=== PATIENT | female | born 1935 | race Caucasian/White ===

== ENCOUNTER 2016-11-17 08:01 | Inpatient (IN) | payer MEDICARE, MEDICAID ==
[2016-11-17] VITALS (7 sets, daily range): BP systolic 98–144; BP diastolic 54–88
[~2016-11-17] VITALS: Ht 163.8 cm; Wt 88.0 kg
[~2016-11-17 08:01] MED LIST: ASP81CT PO; ASPI325T4 PO; CALC-140 PO; DGX.125T PO; DOCU-243 PO; EXEN5PEN2 SQ; FERR325T36 PO; FURO40TA4 PO; HYDR-33 PO; HYDR-3702 PO; HYDR-3811 PO; INSU100C7 SQ; INSU100I23 SQ; INSU100V2 SC; INSU100V8 SC; LISI30TA5 PO; LOVA40TA2 PO; LSNP10T PO; LSNP20T PO; MELA10TA PO; MTL2.5T PO; MTP50T PO; OMEP20CA6 PO; ONDAN4ODT PO; ONDN4T PO; SITA100T PO; TEMA7.5C PO; WARF3TAB6 PO
[2016-11-17] MEDS ORDERED: SERT50TA9 PO (08:19)
[2016-11-17] MEDS ORDERED: AC325T PO (08:19)
[2016-11-17] MEDS ORDERED: INSU100V32 SC (08:19)
--- NOTE | 2016-11-17 08:20 | NUR ---
This nurse noted "full code" status in facility paperwork. Also in facility paperwork is a DNR not signed by from February 2016 Addendum: 11/17/16 at 0822 by [id number] PT states she is a "full code"
[2016-11-17 08:41] LABS: BASOPHILS % (AUTO) 0 % (0-2); EOSINOPHILS # (AUTO) 0.1 10^3uL; EOSINOPHILS % (AUTO) 1 % (0-4); LYMPHOCYTES # (AUTO) 1.5 X10^3; MEAN CORPUSCULAR HEMOGLOBIN 27.8 PG (26.0-34.0); MEAN CORPUSCULAR VOLUME 87 FL (80-100); MEAN PLATELET VOLUME 10.5 FL (6.0-9.5); MONOCYTES # (AUTO) 1.2 X10^3; MONOCYTES % (AUTO) 7 % (3-11); NEUTROPHILS # (AUTO) 13.3 X10^3; NEUTROPHILS % (AUTO) 82 % (51-67); PLATELET COUNT 277 10^3uL (150-450); WHITE BLOOD COUNT 16.27 10^3uL (4.0-11.0)
[2016-11-17 08:52] LABS: ALBUMIN 3.5 g/dL (3.4-5.0); ANION GAP 15.9 MEQ/L (3-15); CALCULATED IONIZED CALCIUM 4.2 mg/dL (3.8-4.6); TOTAL PROTEIN 6.1 g/dL (6.4-8.5)
--- NOTE | 2016-11-17 09:45 | NUR ---
Nurse at [facility] called to notify of pt admission
--- NOTE | 2016-11-17 10:00 | NUR ---
Received report from Trupti Zepeda RN in ED.
--- NOTE | 2016-11-17 10:11 | NUR ---
Patient admitted to room 310 via cart from ED. See admission database for further assessment.
[2016-11-17] MEDS ORDERED: HYDROcodone/APAP 5 MG/325 MG (NORCO) TAB PO PRN (10:40)
[2016-11-17] MEDS ORDERED: ONDANSETRON 2 MG/ML (Z0FRAN) 2 ML VIAL IV PRN (10:40)
[2016-11-17] MEDS ORDERED: ACETAMINOPHEN 325 MG TAB (TYLENOL) PO PRN (10:40)
--- NOTE | 2016-11-17 10:48 | History and Physical (E) ---
History & Physical PCP: CC Blood in stools HPI Ms. Powell is an 81 year old female who presents to the ED for blood per rectum. She states she woke up around 3am and felt like there was something in the back of her throat. She coughed it up, she reports it was brown. She then started having diarrhea. She states she had 3 hours of diarrhea which was bloody. She called for help. She saw Dr. Bess about a month ago. She does not remember when her last INR was checked. She was brought to the ED and found to have blood in her stools. Denies any abdominal pain, denies any other episodes of this. She does endorse some hot and cold episodes. She uses tylenol for pain, but denies any ibuprofen or NSAIDs. She denies any steroid use. Patient states her last colonoscopy was at age 51 or 52. Upon arrival to floor, the patient is in stable condition. PMH Atrial fibrillation (warfarin and digoxin) HTN (lisinopril and metoprolol) Diabetes Mellitus (lantus 18 units, 10 units of humalog with meals) HLD (lovastatin) Chronic pain (acetaminophen and prn hydrocodone/acetaminophen) Breast cancer Skin cancer CAD (ASA, metoprolol)--sees Dr. García Depression (sertraline) IBS Constipation (prn colace) OA (calcium supplementation Rotator cuff injury PSH Left mastectomy Total hysterectomy Bilateral cataract surgery Right total knee replacement Cholecystectomy Back surgery Carpal tunnel surgery ALLERGIES: PCN Sulfa Gabapentin Morphine Silver sulfadiazine Please see list at end of report. HOME MEDICATIONS: Acetaminophen 325 MG PO BID Aspirin 81 MG PO DAILY Calcium Carbonate/Vitamin D3 2 EACH PO DAILY Digoxin 0.125 MG PO DAILY Furosemide 40 MG PO BID@0900,1200 Insulin Glargine 18 UNIT SC once evening Insulin Lispro 10 UNIT SC BID@08,17 Lisinopril 5 MG PO DAILY Lovastatin 40 MG PO DAILY Metoprolol Tartrate 25 MG PO BID Sertraline 50 MG PO DAILY Warfarin 3 MG PO DAILY@1700 Docusate 100 MG PO BID PRN PRN CONSTIPATION Hydrocodone/Acetaminophen 5/325mg #6 1-2 TAB PO Q6H PRN PRN PAIN Ondansetron 4 MG PO Q8H PRN PRN NAUSEA/VOMITING Please see list at end of report. FH Parents--Mom of heart failure. Father had emphysema. Siblings--Brother of brain stem stroke. Children--Daughter had breast cancer. SH Lives in [place] in an apartment at [address]. . Daughter lives in [place]. 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 Denies smoking, alcohol, or drug use. CODE STATUS DNR ROS CONSTITUTION: Denies weight loss or gain. Endorses chills. HEENT: No change in vision or hearing. No sores in mouth, sore throat. CV: No chest pain, palpitations. PULM: No new cough, shortness of breath, difficulty breathing. GI: No upset stomach, nausea, vomiting, constipation, or diarrhea. No blood in stool. : No dysuria. No blood in urine. MS: No new muscle or joint aches and pains. NEURO: No numbness or tingling. No weakness. INTEG: No rashes. Sore to right shoulder. ENDO: No heat or cold intolerance. HEME/LYMPH: Endorse easy bruising with coumadin. No swollen glands. PSYCH: No change in mood or behavior. OBJECTIVE Vital Signs Date Time Temp Pulse Resp B/P Pulse Ox O2 Delivery O2 Flow Rate FiO2 11/17/16 10:24 96.6 88 20 99 Room air 11/17/16 07:58 127/45 GEN: Awake and alert. No distress. HEENT: Normocephalic. Atraumatic, moist oral mucosa. CV: Irregular rhythm. Normal rate. S1 S2 normal with no murmur LUNGS: CTA B. NLR's ABD: Normal bowel sounds. S/ND/NTTP. EXTR: No C/C/E. Normal peripheral pulses. INTEG: No rash. NEURO: No focal motor neuro deficit. LABS CBC BMP Last 24 Hrs 11/17/16 08:33 Laboratory Results Past 24 Hrs 11/17/16 08:33: Alanine Aminotransferase (ALT/SGPT) 23, Albumin 3.5, Albumin/Globulin Ratio 1.346, Alkaline Phosphatase 72, Anion Gap 15.9, Aspartate Amino Transf (AST/SGOT ) 17, BUN/Creatinine Ratio 46, Basophils # (Auto) 0.0, Basophils (%) (Auto) 0, Blood Urea Nitrogen 49, Calcium Level 8.8, Calcium/Ionized Calcium Ratio 4.2, Calculated Osmolality 285, Carbon Dioxide Level 24, Chloride Level 102, Creatinine 1.07, Digoxin Level 0.50, Eosinophils # (Auto) 0.1, Eosinophils (%) ( Auto) 1, Estimat Glomerular Filtration Rate 59.6, Estimated GFR (Non- 49.2, Glucose Level 212, Hematocrit 33.70, Hemoglobin 10.8, Lymphocytes # (Auto) 1.5, Lymphocytes (%) (Auto) 9, Mean Corpuscular Hemoglobin 27.8, Mean Corpuscular Hemoglobin Concent 32.0, Mean Corpuscular Volume 87, Mean Platelet Volume 10.5, Monocytes # (Auto) 1.2, Monocytes (%) (Auto) 7, Neutrophils # (Auto) 13.3, Neutrophils (%) (Auto) 82, Platelet Count 277, Potassium Level 4.7, Prothromb Time International Ratio 3.4, Prothrombin Time 37.1, Red Blood Count 3.89, Red Cell Distribution Width 15.0, Sodium Level 138, Total Bilirubin 0.6, Total Protein 6.1, White Blood Count 16.27 IMAGING None ASSESSMENT/PLAN GI bleed Currently not bleeding. Hgb stable. Monitor closely. Will transfuse less than 8. Supra-therapeutic INR. 3.4 with reported bleeding. Will hold coumadin today and monitor INR's. Atrial fibrillation On warfarin and digoxin at home, holding warfarin today, recheck INR tomorrow. Dig level normal, will continue this. HTN On lisinopril and metoprolol at home, will continue here. Diabetes Mellitus Home regimen of lantus 18 units and 10 units of humalog with meals. Monitor accu cheks, provide SSI. HLD Lovastatin per home dose, will continue here. Chronic pain Continue home acetaminophen and prn hydrocodone/acetaminophen CAD/[place] Continue home metoprolol, holding ASA. Depression Continue home sertraline. Constipation On prn colace at home, will continue to provide. OA On calcium supplementation at home, will continue DVT proph SCD's for now. Code status DNR confirmed with patient. FEN CLD for now, advance when stools and bleeding has improved. Electrolytes normal. IVF's, one liter provided in ED. Dispo Observation for now. Allergies/Home Medications Allergies: Coded Allergies: Penicillins (Verified Allergy, Unknown, 11/17/16) Sulfa (Sulfonamide Antibiotics) (Verified Allergy, Unknown, 11/17/16) gabapentin (Verified Allergy, Unknown, 11/17/16) silver sulfadiazine (Verified Allergy, Unknown, 11/17/16) morphine (Unverified Adverse Reaction, Unknown, 11/17/16) "Makes me crazy." States pain pill make her crazy also. Reported Home Medications Scheduled Acetaminophen (Acetaminophen) 325 MG PO BID (Reported) Aspirin (Baby Aspirin) 81 MG PO DAILY (Reported) Calcium Carbonate/Vitamin D3 (Calcium + Vitamin D Tablet) 1 EACH PO DAILY ( Reported) Diclofenac Sodium (Voltaren 1% Gel) 4 GM TOP BID (Reported) Digoxin (Digoxin) 125 MCG PO Q48H (Reported) Docusate Sodium (Docusate Sodium) 200 MG PO DAILY (Reported) Furosemide (Furosemide) 40 MG PO DAILY (Reported) Hydrocodone Bit/Acetaminophen ([place] 10mg/325mg) 2 TAB PO BID (Reported) Insulin Glargine,Hum.rec.anlog (Lantus) 18 UNIT SC once evening (Reported) Insulin Lispro (Humalog) 10 UNIT SC BID@08,17 Lidocaine HCl (Lidoderm 5% Patch) 1 EA TOP DAILY (Reported) Lisinopril (Lisinopril) 5 MG PO DAILY (Reported) Lovastatin (Lovastatin) 40 MG PO DAILY (Reported) Metoprolol Tartrate (Metoprolol Tartrate) 25 MG PO BID (Reported) Omeprazole Magnesium (Prilosec OTC) 20 MG PO DAILY (Reported) Sertraline HCl (Sertraline HCl) 50 MG PO DAILY (Reported) Warfarin Sodium (Warfarin Sodium) 3 MG PO DAILY@1700 (Reported) Scheduled PRN Furosemide (Furosemide) 40 MG PO HS PRN PRN EDEMA/WEIGHT GAIN (Reported) Hydrocodone Bit/Acetaminophen ([place] 10mg/325mg) 1 TAB PO Q4H PRN PRN PAIN ( Reported) Ondansetron HCl (Zofran) 4 MG PO Q8H PRN PRN NAUSEA/VOMITING (Reported) Promethazine/Codeine (Phenergan w/Codeine 6.25mg-10mg/5ml) 5 ML PO Q6H PRN PRN COUGH (Reported) Discontinued Medications Digoxin (Lanoxin) 0.125 MG PO DAILY Discontinued Reason: Dose changed Docusate Sodium (Colace) 100 MG PO BID PRN PRN CONSTIPATION Discontinued Reason: Update list Hydrocodone/Acetaminophen (ED- [place] 5/325mg #6) 1-2 TAB PO Q6H PRN PRN PAIN ( Reported) Discontinued Reason: Update list Temazepam (Temazepam) 7.5 MG PO HS PRN PRN INSOMNIA (Reported) Discontinued Reason: Course completed Copies to: End of Report . SANTIAGO MITCHELL MD Nov 17, 2016 10:48
[2016-11-17] MEDS ORDERED: PANTOPRAZOLE IV 80 MG in SODIUM CHLORIDE FLUSH 20 ML IV ONE (11:12)
[2016-11-17] MEDS: PANTOPRAZOLE IV 40 MG in SODIUM CHLORIDE 100 ML IV SCH ×3 (11:22→21:37)
[2016-11-17] MEDS ORDERED: DOCU100C8 PO (11:25)
[2016-11-17] MEDS ORDERED: DIGO125T PO (11:26)
[2016-11-17] MEDS ORDERED: FURO40TA4 PO (11:29)
[2016-11-17] MEDS ORDERED: ACHYD1T PO ×2 (11:32→11:33)
[2016-11-17] MEDS ORDERED: PRCD5U PO (11:37)
[2016-11-17] MEDS ORDERED: DICL100G13 TOP (11:37)
[2016-11-17] MEDS ORDERED: LD5PT TOP (11:37)
[2016-11-17] MEDS ORDERED: OMEP20TA33 PO (11:37)
--- NOTE | 2016-11-17 11:38 | NUR ---
Medication reconciliation completed using MAR from [facility] facility.
[2016-11-17] MEDS ORDERED: SODIUM CHLORIDE FLUSH 10 ML SYR IV SCH (11:45)
[2016-11-17] MEDS ORDERED: SODIUM CHLORIDE FLUSH 3 ML SYR IV PRN (11:45)
--- NOTE | 2016-11-17 14:25 | NUR ---
Dr. Quitnero at bedside- family at bedside. Pt has not had any stools since admission or in ED. Pt states last BM was this AM around 3am. 1400 Hgb was 9.3- Dr. Quintero and patient aware- Dr. Quintero explains to patient that we will cont to monitor Hgb and transfuse blood if Hgb drops under 8.0. Pt verbalizes understanding.
[2016-11-17] MEDS: INSULIN LISPRO 1 UNIT/0.01 ML (HUMALOG) DOSE SC SCH (17:47)
[2016-11-17] MEDS: SIMvastatin 20 MG (ZOCOR) TAB PO SCH (21:29)
[2016-11-17] MEDS: ACETAMINOPHEN 325 MG TAB (TYLENOL) PO SCH (21:29)
[2016-11-17] MEDS: INSULIN GLARGINE 1 UNIT/0.01ML (LANTUS) DOSE SC SCH (21:30)
--- NOTE | 2016-11-17 23:50 | NUR ---
BGM 79, insulin gtt stopped. Grape juice provided per pt preference. Pt awake, alert and watching television. Will continue to monitor. Addendum: 11/17/16 at 2359 by Abril Magaña RN Wrong entry - incorrect chart.
[2016-11-18] VITALS (9 sets, daily range): BP systolic 101–151; BP diastolic 46–68
[2016-11-18] MEDS: PANTOPRAZOLE IV 40 MG in SODIUM CHLORIDE 100 ML IV SCH ×5 (02:40→23:38)
[2016-11-18 03:23] LABS: BILIRUBIN,URINE Negative (Negative); CLARITY,URINE Clear; COLOR,URINE Yellow; GLUCOSE, URINE (UA) Negative (Negative); LEUKOCYTE ESTERASE ,URINE Negative (Negative); PH,URINE 6.5 (5.0 - 8.0); UROBILINOGEN,URINE 0.2 mg/dL (0.2-1.0)
[2016-11-18 03:40] LABS: URINE CENTRIFUGED VOLUME 12 mL
--- NOTE | 2016-11-18 06:49 | NUR ---
Patient rests in bed throughout night without needs. Up to commode frequently. Has one bloody stool. Patient without needs at this time.
[2016-11-18 06:54] LABS: BASOPHILS % (AUTO) 0 % (0-2); EOSINOPHILS # (AUTO) 0.1 10^3uL; EOSINOPHILS % (AUTO) 1 % (0-4); LYMPHOCYTES # (AUTO) 2.2 X10^3; MEAN CORPUSCULAR HEMOGLOBIN 27.5 PG (26.0-34.0); MEAN CORPUSCULAR HGB CONC 32.4 g/dL (31.0-37.0); MEAN CORPUSCULAR VOLUME 85 FL (80-100); MEAN PLATELET VOLUME 10.7 FL (6.0-9.5); MONOCYTES # (AUTO) 1.1 X10^3; MONOCYTES % (AUTO) 8 % (3-11); NEUTROPHILS # (AUTO) 9.4 X10^3; NEUTROPHILS % (AUTO) 73 % (51-67); PLATELET COUNT 247 10^3uL (150-450); WHITE BLOOD COUNT 12.87 10^3uL (4.0-11.0)
[2016-11-18 07:08] LABS: ALBUMIN 3.2 g/dL (3.4-5.0); ANION GAP 12.2 MEQ/L (3-15); CALCULATED IONIZED CALCIUM 4.4 mg/dL (3.8-4.6); TOTAL PROTEIN 5.7 g/dL (6.4-8.5)
[2016-11-18] MEDS: INSULIN LISPRO 1 UNIT/0.01 ML (HUMALOG) DOSE SC SCH ×2 (08:30→17:00)
--- NOTE | 2016-11-18 08:48 | Progress Note-A/P (E) ---
Progress Note Subjective: Patient is resting in bed. Daughters are at bedside with many questions and concerns. Patient reports a small dark stool this morning. Discussed current findings and care plan with the patient and her family. Questions answered. Objective: Current Medications Acetaminophen 650 mg Q6H PRN PO Ondansetron 4 mg Q6H PRN IV Pantoprazole IV Acetaminophen 325 mg BID PO Digoxin 0.125 mg Q48H PO Docusate 100 mg BID PRN PO Acetaminophen/ Hydrocodone 5 Mg/325 Mg 1-2 tabs Q6H PRN PO Insulin Glargine 18 unit HS SC Insulin Human Lispro 10 unit BID@ SC Lisinopril 5 mg DAILY PO Sertraline 50 mg DAILY PO Calcium/Vitamin D 2 each DAILY PO Simvastatin 20 mg HS PO Vital Signs Date Time Temp Pulse Resp B/P Pulse Ox O2 Delivery O2 Flow Rate FiO2 11/18/16 08:25 98.4 89 18 151/63 99 Room air I & O Past 24 hrs 11/18/16 07:00 Intake Total 1379 ml Output Total 2250 ml Balance -871 ml Intake Oral 1162 ml IV Total 217 ml Output Urine Total 2250 ml Physical Exam General--Awake and alert. No distress. HEENT--Normocephalic. MMM in oral cavity. Lungs--Clear to auscultation bilaterally. Nonlabored respirations. Heart--Irregular rhythm. Regular rate. Abdomen--Normal bowel sounds. Soft. Nondistended. Nontender. Extremities--Mild lower extremity edema noted. Past 24 hour Lab Results 11/17/16 13:57 11/17/16 22:04 11/18/16 06:10 Laboratory Results Past 24 Hrs 11/17/16 13:57: Hematocrit 29.10, Hemoglobin 9.3 11/17/16 22:04: Hemoglobin 9.0 11/18/16 02:50: Urine Bacteria Rare, Urine Bilirubin Negative, Urine Clarity Clear, Urine Collection Type Clean catch, Urine Color Yellow, Urine Glucose (UA) Negative, Urine Ketones Negative, Urine Leukocyte Esterase Negative, Urine Nitrite Negative, Urine Protein Negative, Urine RBC 10-20, Urine RBC (Auto) 3+, Urine Specific [place] 1.010, Urine Squamous Epithelial Cells 10-20, Urine Urobilinogen 0.2, Urine WBC 0-2, Urine pH 6.5, Volume Urine Centrifuged 12 ml 11/18/16 06:10: Hematocrit 27.20, Hemoglobin 8.8, Alanine Aminotransferase (ALT/SGPT) 28, Albumin 3.2, Albumin/Globulin Ratio 1.280, Alkaline Phosphatase 67, Anion Gap 12.2, Aspartate Amino Transf (AST/SGOT) 16, BUN/Creatinine Ratio 31, Basophils # (Auto) 0.0, Basophils (%) (Auto) 0, Blood Urea Nitrogen 29, Calcium Level 8.8 , Calcium/Ionized Calcium Ratio 4.4, Calculated Osmolality 275, Carbon Dioxide Level 23, Chloride Level 107, Creatinine 0.94, Eosinophils # (Auto) 0.1, Eosinophils (%) (Auto) 1, Estimat Glomerular Filtration Rate 69.2, Estimated GFR (Non- 57.2, Glucose Level 131, Lymphocytes # (Auto) 2.2, Lymphocytes (%) (Auto) 17, Mean Corpuscular Hemoglobin 27.5, Mean Corpuscular Hemoglobin Concent 32.4, Mean Corpuscular Volume 85, Mean Platelet Volume 10.7, Monocytes # (Auto) 1.1, Monocytes (%) (Auto) 8, Neutrophils # (Auto) 9.4, Neutrophils (%) (Auto) 73, Platelet Count 247, Potassium Level 4.4, Prothromb Time International Ratio 2.6, Prothrombin Time 29.2, Red Blood Count 3.20, Red Cell Distribution Width 15.4, Smear Scan , Sodium Level 138, Total Bilirubin 0.7 , Total Protein 5.7, White Blood Count 12.87 Imaging Results None Assessment/Plan GI bleed Currently not bleeding. Hgb has dropped from 10.5 on admission to 8.8 this morning. On recheck hgb is 8.5, seems to have stabilized. Monitor closely. Will transfuse if hgb drops less than 8. Supra-therapeutic INR. 3.4 with reported bleeding. Held coumadin yesterday, INR is down to 2.6, hold again today, look to restart tomorrow. Atrial fibrillation On warfarin and digoxin at home. Dig level normal, will continue this. HTN On lisinopril and metoprolol at home, will continue lisinopril here, hold BB until bleed passes. Diabetes Mellitus Home regimen of lantus 18 units and 10 units of humalog with meals. Monitor accu cheks ([phone]), provide SSI. HLD Lovastatin per home dose, will continue here. Chronic pain Continue home acetaminophen and prn hydrocodone/acetaminophen CAD/[place] Continue home metoprolol, holding ASA due to bleed. Depression Continue home sertraline. Constipation On prn colace at home, will continue to provide. OA On calcium supplementation at home, will continue DVT proph SCD's for now. Code status DNR confirmed with patient. FEN CLD initially, will advance to soft diet. Electrolytes normal. IVF's, one liter provided in ED. Dispo Patient is meeting inpatient criteria, will change status. Holding coumadin again today, look to restart on Saturday. Advancing diet. Monitor hgb and INR closely SANTIAGO MITCHELL MD Nov 18, 2016 08:48 SANTIAGO MITCHELL MD Nov 18, 2016 08:48
[2016-11-18] MEDS ORDERED: DIGOXIN 0.125 MG (LANOXIN) TAB PO SCH (08:50)
[2016-11-18] MEDS ORDERED: HYDROcodone/APAP 10 MG/325 MG (NORCO) TAB PO PRN (08:50)
[2016-11-18] MEDS: DIGOXIN 0.125 MG (LANOXIN) TAB PO SCH (10:35)
[2016-11-18] MEDS: FUROSEMIDE 40 MG (LASIX) TAB PO SCH (10:36)
[2016-11-18] MEDS: HYDROcodone/APAP 10 MG/325 MG (NORCO) TAB PO SCH ×2 (10:36→20:40)
[2016-11-18] MEDS: lisINopril 10 MG (PRINIVIL) TABLET PO SCH (10:36)
[2016-11-18] MEDS: CALCIUM CARBONATE 500 MG + VITAMIN D 200 IU TABLET PO SCH (10:36)
[2016-11-18] MEDS: ACETAMINOPHEN 325 MG TAB (TYLENOL) PO SCH ×2 (10:36→20:40)
[2016-11-18] MEDS: SERTRALINE 50 MG (ZOLOFT) TABLET PO SCH (10:36)
[2016-11-18] MEDS: LIDOCAINE (LIDODERM) 5% PATCH TOP SCH (10:37)
--- NOTE | 2016-11-18 18:00 | NUR ---
Hemoglobin remained stable this afternoon. Several clots noted but no large amount of blood was expelled. Able to take clear liquids without difficulty. Plan is to advance diet to soft in the morning.
--- NOTE | 2016-11-18 19:15 | NUR ---
Report received, care assumed. Pt resting in bed now after being up to BSC. No needs now.
[2016-11-18] MEDS: SIMvastatin 20 MG (ZOCOR) TAB PO SCH (20:41)
[2016-11-18] MEDS: INSULIN GLARGINE 1 UNIT/0.01ML (LANTUS) DOSE SC SCH (20:44)
--- NOTE | 2016-11-18 22:00 | NUR ---
Pt resting in bed at this time with eyes closed, no signs discomfort. Pt took evening medications without difficulty earlier. Reported mild discomfort in shoulder. No needs at this time. Call light in reach, side rails up times two, bed alarm on, H2O and personal items in reach. Fall precautions in place.
[2016-11-19] VITALS (12 sets, daily range): BP systolic 123–139; BP diastolic 34–98
[2016-11-19] MEDS: PANTOPRAZOLE IV 40 MG in SODIUM CHLORIDE 100 ML IV SCH (04:31)
--- NOTE | 2016-11-19 06:00 | NUR ---
Pt has slept well tonight. No reports discomfort. Has been up to BSC frequently, no large amounts blood in stool this shift. IV Protonix continues to infuse at 20ml/hr. Pt resting quietly with eyes closed now. No needs at this time. Call light in reach, side rails up times two, H2O and personal items in reach, bed alarm on.
[2016-11-19 06:30] LABS: BASOPHILS % (AUTO) 0 % (0-2); EOSINOPHILS # (AUTO) 0.2 10^3uL; EOSINOPHILS % (AUTO) 1 % (0-4); LYMPHOCYTES # (AUTO) 1.8 X10^3; MEAN CORPUSCULAR HEMOGLOBIN 27.2 PG (26.0-34.0); MEAN CORPUSCULAR VOLUME 86 FL (80-100); MEAN PLATELET VOLUME 10.7 FL (6.0-9.5); MONOCYTES % (AUTO) 9 % (3-11); NEUTROPHILS # (AUTO) 7.8 X10^3; NEUTROPHILS % (AUTO) 72 % (51-67); PLATELET COUNT 233 10^3uL (150-450)
[2016-11-19 06:51] LABS: ANION GAP 11.7 MEQ/L (3-15); CALCULATED IONIZED CALCIUM 4.6 mg/dL (3.8-4.6); TOTAL PROTEIN 5.3 g/dL (6.4-8.5)
[2016-11-19 07:26] LABS: MEAN CORPUSCULAR HGB CONC 31.7 g/dL (31.0-37.0)
[2016-11-19] MEDS: HYDROcodone/APAP 10 MG/325 MG (NORCO) TAB PO SCH ×2 (08:28→20:52)
[2016-11-19] MEDS: CALCIUM CARBONATE 500 MG + VITAMIN D 200 IU TABLET PO SCH (08:30)
[2016-11-19] MEDS: SERTRALINE 50 MG (ZOLOFT) TABLET PO SCH (08:32)
[2016-11-19] MEDS: LIDOCAINE (LIDODERM) 5% PATCH TOP SCH (08:34)
[2016-11-19] MEDS: ACETAMINOPHEN 325 MG TAB (TYLENOL) PO SCH (08:34)
[2016-11-19] MEDS: INSULIN LISPRO 1 UNIT/0.01 ML (HUMALOG) DOSE SC SCH ×5 (08:39→20:49)
[2016-11-19] MEDS: lisINopril 10 MG (PRINIVIL) TABLET PO SCH (09:00)
[2016-11-19] MEDS: FUROSEMIDE 40 MG (LASIX) TAB PO SCH (09:00)
--- NOTE | 2016-11-19 09:53 | NUR ---
NUTRITION ASSESSMENT Level 1 Patient: Renata Powell Age/Sex: 81/F Date Screened: 11-19-16 Weight: 196.6#/89.4 kg Height: 64.5 inches Primary Diagnosis: GI bleed Diet Order: surgical soft Relevant labs: Hgb 8.4, Hct 26.50, glucose 139 Food allergies: N Nutrition Assessment Criteria Age over 80: 4 points Body Mass Index (BMI) under 19: N Admission Screening Indicates Risk? 6 points Moderate/High Risk Diagnosis: 3 points TPN or PPN: N NPO or clear liquid diet: N Serum Glucose <70 or >180: N Hgb A1c >6.7: N/A Total: 13 points Risk Screen: __ Patient at low nutritional risk based on available data; reevaluate in 5-7 days __ Patient at moderate nutritional risk based on available data; reevaluate in 3-5 days _X_ Patient at high nutritional risk; complete Nutrition Assessment within 48 hours of admission.
[2016-11-19] MEDS ORDERED: DEXTROSE ORAL GEL (GLUTOSE 40%) 15 GM TUBE PO PRN (10:50)
[2016-11-19] MEDS ORDERED: MAG HYDROX/AL HYDROX/SIMETH 200-200-20/5 ML (MAG-AL PLUS) 30 ML UDC PO PRN (10:50)
[2016-11-19] MEDS ORDERED: MAGNESIUM HYDROXIDE 80MG/ML (MILK OF MAGNESIA) 30 ML UDC PO PRN (10:50)
[2016-11-19] MEDS ORDERED: GLUCAGON EMERGENCY 1 MG/KIT IM PRN (10:50)
[2016-11-19] MEDS ORDERED: POLYETHYLENE GLYCOL 17 GM (MIRALAX) PACKET PO PRN (10:50)
[2016-11-19] MEDS ORDERED: DOCUSATE SODIUM 100 MG (COLACE) CAP PO PRN (10:50)
[2016-11-19] MEDS ORDERED: DEXTROSE 50% 25 GM/50 ML SYRINGE IV PRN (10:50)
[2016-11-19] MEDS ORDERED: CALCIUM CARBONATE CHEWABLE 300 MG (TUMS) TABLET PO PRN (10:50)
--- NOTE | 2016-11-19 11:23 | Progress Note (E) ---
Progress Note SUBJECTIVE Overnight, no major issues reported. Afebrile. Has had tachycardia at times but well controlled for atrial fibrillation. Respirations remain normal and she remains on room air. This AM, having some abdominal pain that is RUQ and under rib. Daughters are present and are very worried this could be related to blood clot. Noted that RN just gave pain medication that hasn't had time to work yet. OBJECTIVE Vital Signs Date Time Temp Pulse Resp B/P Pulse Ox O2 Delivery O2 Flow Rate FiO2 11/19/16 09:17 115 132/44 11/19/16 09:15 97.0 18 96 Room air I & O 11/18/16 11/19/16 Cumulative From/Thru 19:00 07:00 11/17/16 07:58 - 11/19/16 06:15 Intake Total 2261 ml 1101 ml 4741 ml Output Total 1900 ml 2300 ml 6450 ml Balance 361 ml -1199 ml -1709 ml GEN: HEENT: CV: PULM: ABD: EXTR: INTEG: NEURO: Lab-Past 14 Days, 35 Results 11/17/16 08:33: Alanine Aminotransferase (ALT/SGPT) 23L, Albumin 3.5, Albumin/Globulin Ratio 1.346, Alkaline Phosphatase 72, Anion Gap 15.9H, Aspartate Amino Transf (AST/ SGOT) 17, BUN/Creatinine Ratio 46H, Basophils # (Auto) 0.0, Basophils (%) (Auto ) 0, Blood Urea Nitrogen 49#H, Calcium Level 8.8, Calcium/Ionized Calcium Ratio 4.2, Calculated Osmolality 285, Carbon Dioxide Level 24, Chloride Level 102, Creatinine 1.07, Digoxin Level 0.50L, Eosinophils # (Auto) 0.1, Eosinophils (%) (Auto) 1, Estimat Glomerular Filtration Rate 59.6, Estimated GFR (Non- 49.2, Glucose Level 212#H, Hematocrit 33.70L, Hemoglobin 10.8L, Lymphocytes # (Auto) 1.5, Lymphocytes (%) (Auto) 9L, Mean Corpuscular Hemoglobin 27.8, Mean Corpuscular Hemoglobin Concent 32.0, Mean Corpuscular Volume 87, Mean Platelet Volume 10.5H, Monocytes # (Auto) 1.2, Monocytes (%) ( Auto) 7, Neutrophils # (Auto) 13.3, Neutrophils (%) (Auto) 82H, Platelet Count 277, Potassium Level 4.7#, Prothromb Time International Ratio 3.4H, Prothrombin Time 37.1H, Red Blood Count 3.89L, Red Cell Distribution Width 15.0, Sodium Level 138, Total Bilirubin 0.6, Total Protein 6.1L, White Blood Count 16.27H 11/17/16 13:57: Hematocrit 29.10L, Hemoglobin 9.3L 11/17/16 22:04: Hemoglobin 9.0L 11/18/16 02:50: Urine Bacteria Rare, Urine Bilirubin Negative, Urine Clarity Clear, Urine Collection Type Clean catch, Urine Color Yellow, Urine Glucose (UA) Negative, Urine Ketones Negative, Urine Leukocyte Esterase Negative, Urine Nitrite Negative, Urine Protein Negative, Urine RBC 10-20H, Urine RBC (Auto) 3+H, Urine Specific [place] 1.010, Urine Squamous Epithelial Cells 10-20, Urine Urobilinogen 0.2, Urine WBC 0-2, Urine pH 6.5, Volume Urine Centrifuged 12 ml 11/18/16 06:10: Alanine Aminotransferase (ALT/SGPT) 28L, Albumin 3.2L, Albumin/Globulin Ratio 1.280, Alkaline Phosphatase 67, Anion Gap 12.2, Aspartate Amino Transf (AST/SGOT ) 16, BUN/Creatinine Ratio 31H, Basophils # (Auto) 0.0, Basophils (%) (Auto) 0, Blood Urea Nitrogen 29H, Calcium Level 8.8, Calcium/Ionized Calcium Ratio 4.4, Calculated Osmolality 275L, Carbon Dioxide Level 23, Chloride Level 107, Creatinine 0.94, Eosinophils # (Auto) 0.1, Eosinophils (%) (Auto) 1, Estimat Glomerular Filtration Rate 69.2, Estimated GFR (Non- 57.2, Glucose Level 131#H, Hematocrit 27.20L, Hemoglobin 8.8L, Lymphocytes # (Auto) 2.2, Lymphocytes (%) (Auto) 17L, Mean Corpuscular Hemoglobin 27.5, Mean Corpuscular Hemoglobin Concent 32.4, Mean Corpuscular Volume 85, Mean Platelet Volume 10.7H, Monocytes # (Auto) 1.1, Monocytes (%) (Auto) 8, Neutrophils # ( Auto) 9.4, Neutrophils (%) (Auto) 73H, Platelet Count 247, Potassium Level 4.4, Prothromb Time International Ratio 2.6H, Prothrombin Time 29.2H, Red Blood Count 3.20L, Red Cell Distribution Width 15.4, Smear Scan , Sodium Level 138, Total Bilirubin 0.7, Total Protein 5.7L, White Blood Count 12.87H 11/18/16 13:22: Hemoglobin 8.7L 11/19/16 05:26: Alanine Aminotransferase (ALT/SGPT) 21L, Albumin 3.0L, Albumin/Globulin Ratio 1.304, Alkaline Phosphatase 66, Anion Gap 11.7, Aspartate Amino Transf (AST/SGOT ) 18, BUN/Creatinine Ratio 21H, Basophils # (Auto) 0.0, Basophils (%) (Auto) 0, Blood Urea Nitrogen 24H, Calcium Level 8.9, Calcium/Ionized Calcium Ratio 4.6, Calculated Osmolality 273L, Carbon Dioxide Level 29, Chloride Level 102, Creatinine 1.14, Eosinophils # (Auto) 0.2, Eosinophils (%) (Auto) 1, Estimat Glomerular Filtration Rate 55.4, Estimated GFR (Non- 45.8, Glucose Level 139H, Hematocrit 26.50L, Hemoglobin 8.4L, Lymphocytes # (Auto) 1.8 , Lymphocytes (%) (Auto) 17L, Mean Corpuscular Hemoglobin 27.2, Mean Corpuscular Hemoglobin Concent 31.7, Mean Corpuscular Volume 86, Mean Platelet Volume 10.7H, Monocytes # (Auto) 1.0, Monocytes (%) (Auto) 9, Neutrophils # ( Auto) 7.8, Neutrophils (%) (Auto) 72H, Platelet Count 233, Potassium Level 4.6, Prothromb Time International Ratio 2.7H, Prothrombin Time 30.4H, Red Blood Count 3.09L, Red Cell Distribution Width 15.6, Smear Scan Yes, Sodium Level 138 , Total Bilirubin 0.6, Total Protein 5.3L, White Blood Count 10.90 TELE 11/19 Atrial fibrillation, rate controlled. IMAGING 11/19/16 ACUTE ABDOMINAL SERIES: PENDING ASSESSMENT Renata Powell is a 81 year old female admitted 11/17 with rectal bleeding that awoke her from sleep. She was mildly coagulopathic on admit with INR 3.4. She had some RUQ abdominal pain of uncertain significance. She has several chronic problems. PLAN * GI Bleed: Based on history, possibly upper, possibly lower. Upper more likely. Also considered diverticulosis vs. ischemic colitis vs. other. Mild coagulopathy due to warfarin contributed. Not reversed with vitamin K. Warfarin held. Pantoprazole drip stopped 11/19. Monitor and likely consult surgery for consideration of EGD. * Acute Blood Loss Anemia: Hgb norma 8.4 11/19. Transfuse for Hgb < 8 or precipitous drop. * Coagulopathy due to Warfarin: Did not receive vitamin K on admit. Warfarin on hold. Monitor INR trend. * Abdominal Pain: Etiology uncertain. Begin workup with acute abdominal series. [place] * F/E/N: Surgical soft. Peripheral IV. * Prophylaxis: SCDs, DAVID hose. * Code Status: DNR * Dispo: Inpatient. Expect 2-3 day additional stay. CHRONIC ISSUES * CAD: Not on aspirin. Check troponin trend. * Constipation: Bowel regimen * HLD: Simvastatin * HTN: Lisinopril * Atrial fibrillation: Warfarin on hold due to GI bleed. Digoxin. * Diabetes Mellitus Type II: * Depression: Sertraline * Edema? Furosemide * CKD Stage III: Cr within normal limits this admission. Observe. * Chronic Diastolic CHF, Severe MR: Stable. Review prior echo. From prior admission: Moderate to Severe MR on echo, had her follow-up with Dr. García. Review records. Furosemide. CRIS ALICIA MD Nov 19, 2016 11:03
--- NOTE | 2016-11-19 14:44 | Diagnostic Imaging Report ---
INDICATION: Abdominal pain. TECHNIQUE: Supine and upright views of the abdomen were obtained with a single view of the chest. FINDINGS: The lungs appear clear. There are surgical clips seen in the left axilla. There is anterior/inferior dislocation of the right humeral head. There is no evidence of free intraperitoneal gas or pneumatosis. The overall bowel gas pattern is unremarkable. There is diffuse spondylosis and degenerative change in the hips. IMPRESSION: No acute abdominal abnormality is identified. Note is made of inferior dislocation of the right shoulder. Dictated by: Dictated on workstation # [id number]
[2016-11-19] MEDS ORDERED: HYDROcodone/APAP 10 MG/325 MG (NORCO) TAB PO PRN (14:50)
[2016-11-19] MEDS: DOCUSATE SODIUM 100 MG (COLACE) CAP PO PRN (20:51)
[2016-11-19] MEDS: INSULIN GLARGINE 1 UNIT/0.01ML (LANTUS) DOSE SC SCH (20:51)
[2016-11-19] MEDS: SIMvastatin 20 MG (ZOCOR) TAB PO SCH (20:52)
[2016-11-20] VITALS (9 sets, daily range): BP systolic 96–133; BP diastolic 47–75
[2016-11-20] MEDS: DOCUSATE SODIUM 100 MG (COLACE) CAP PO PRN (05:52)
[2016-11-20 06:10] LABS: BASOPHILS % (AUTO) 0 % (0-2); EOSINOPHILS # (AUTO) 0.1 10^3uL; EOSINOPHILS % (AUTO) 1 % (0-4); LYMPHOCYTES # (AUTO) 1.8 X10^3; MEAN CORPUSCULAR HEMOGLOBIN 27.7 PG (26.0-34.0); MEAN CORPUSCULAR HGB CONC 32.7 g/dL (31.0-37.0); MEAN CORPUSCULAR VOLUME 85 FL (80-100); MEAN PLATELET VOLUME 10.6 FL (6.0-9.5); MONOCYTES # (AUTO) 1.1 X10^3; MONOCYTES % (AUTO) 9 % (3-11); NEUTROPHILS # (AUTO) 8.6 X10^3; NEUTROPHILS % (AUTO) 74 % (51-67); PLATELET COUNT 265 10^3uL (150-450); WHITE BLOOD COUNT 11.63 10^3uL (4.0-11.0)
--- NOTE | 2016-11-20 06:10 | NUR ---
Pt rests in short intervals throughout the night. Up frequently to urinate. C/o pain under her rib and shoulder pain rated at 4/10 this morning. PRN norco provided. PRN colace provided; but no results yet. Resp even and non labored on RA.
[2016-11-20] MEDS: INSULIN LISPRO 1 UNIT/0.01 ML (HUMALOG) DOSE SC SCH ×6 (06:25→20:58)
[2016-11-20 06:40] LABS: ALBUMIN 3.5 g/dL (3.4-5.0); ANION GAP 13.3 MEQ/L (3-15); PHOSPHORUS 4.5 mg/dL (2.4-4.9)
[2016-11-20] MEDS: FUROSEMIDE 40 MG (LASIX) TAB PO SCH (07:48)
[2016-11-20] MEDS: CALCIUM CARBONATE 500 MG + VITAMIN D 200 IU TABLET PO SCH (07:48)
[2016-11-20] MEDS: lisINopril 10 MG (PRINIVIL) TABLET PO SCH (07:49)
[2016-11-20] MEDS: LIDOCAINE (LIDODERM) 5% PATCH TOP SCH (07:50)
[2016-11-20] MEDS: SERTRALINE 50 MG (ZOLOFT) TABLET PO SCH (07:50)
[2016-11-20] MEDS: DIGOXIN 0.125 MG (LANOXIN) TAB PO SCH (07:50)
[2016-11-20] MEDS: HYDROcodone/APAP 10 MG/325 MG (NORCO) TAB PO SCH ×2 (08:34→21:08)
--- NOTE | 2016-11-20 10:29 | NUR ---
Renata is up for exam and assessment this AM. Respirations are even and unlabored skin is clean and dry. She has constant back pain but well controlled with [place] 10s PO. She is up to the side of the bed for morning meal and medications. She returns to bed to rest after meal.
[2016-11-20] MEDS ORDERED: PHYTONADIONE IV ONE (14:50)
[2016-11-20] MEDS ORDERED: SODIUM CHLORIDE IV ONE (14:50)
--- NOTE | 2016-11-20 14:53 | Progress Note (E) ---
Progress Note SUBJECTIVE Overnight, no major issues. Tolerating PO intake. No further bleeding noted. Hgb trending down slowly, now 9.1. WBC 11.63 with 74% N. BUN is not elevated but was 49 on admit. Noted she has some orthostasis on vitals. Discussing with surgery and hoping for consult today with possible EGD in AM. Updated patient on findings, plan of care. OBJECTIVE Vital Signs Date Time Temp Pulse Resp B/P Pulse Ox O2 Delivery O2 Flow Rate FiO2 11/20/16 11:51 97.3 71 16 101/47 100 Room air I & O 11/19/16 11/20/16 Cumulative From/Thru 19:00 07:00 11/17/16 07:58 - 11/20/16 05:55 Intake Total 100 ml 800 ml 5641 ml Output Total 1050 ml 1250 ml 8750 ml Balance -950 ml -450 ml -3109 ml GEN: Resting in bed. Pale. Disoriented a bit to time. HEENT: EOMI, clear sclerae, mildly dry oral mucosa. CV: Regular at present with systolic flow murmur at LSB. PULM: CTA B with no R/R/W. ABD: Soft, NT/ND with normal bowel sounds. EXTR: Warm, dry, well-perfused. INTEG: Pallor. Age related changes. No rash. NEURO: No focal motor neuro deficit. Lab-Past 14 Days, 35 Results 11/17/16 08:33: Alanine Aminotransferase (ALT/SGPT) 23L, Albumin 3.5, Albumin/Globulin Ratio 1.346, Alkaline Phosphatase 72, Anion Gap 15.9H, Aspartate Amino Transf (AST/ SGOT) 17, BUN/Creatinine Ratio 46H, Basophils # (Auto) 0.0, Basophils (%) (Auto ) 0, Blood Urea Nitrogen 49#H, Calcium Level 8.8, Calcium/Ionized Calcium Ratio 4.2, Calculated Osmolality 285, Carbon Dioxide Level 24, Chloride Level 102, Creatinine 1.07, Digoxin Level 0.50L, Eosinophils # (Auto) 0.1, Eosinophils (%) (Auto) 1, Estimat Glomerular Filtration Rate 59.6, Estimated GFR (Non- 49.2, Glucose Level 212#H, Hematocrit 33.70L, Hemoglobin 10.8L, Lymphocytes # (Auto) 1.5, Lymphocytes (%) (Auto) 9L, Mean Corpuscular Hemoglobin 27.8, Mean Corpuscular Hemoglobin Concent 32.0, Mean Corpuscular Volume 87, Mean Platelet Volume 10.5H, Monocytes # (Auto) 1.2, Monocytes (%) ( Auto) 7, Neutrophils # (Auto) 13.3, Neutrophils (%) (Auto) 82H, Platelet Count 277, Potassium Level 4.7#, Prothromb Time International Ratio 3.4H, Prothrombin Time 37.1H, Red Blood Count 3.89L, Red Cell Distribution Width 15.0, Sodium Level 138, Total Bilirubin 0.6, Total Protein 6.1L, White Blood Count 16.27H 11/17/16 13:57: Hematocrit 29.10L, Hemoglobin 9.3L 11/17/16 22:04: Hemoglobin 9.0L 11/18/16 02:50: Urine Bacteria Rare, Urine Bilirubin Negative, Urine Clarity Clear, Urine Collection Type Clean catch, Urine Color Yellow, Urine Glucose (UA) Negative, Urine Ketones Negative, Urine Leukocyte Esterase Negative, Urine Nitrite Negative, Urine Protein Negative, Urine RBC 10-20H, Urine RBC (Auto) 3+H, Urine Specific [place] 1.010, Urine Squamous Epithelial Cells 10-20, Urine Urobilinogen 0.2, Urine WBC 0-2, Urine pH 6.5, Volume Urine Centrifuged 12 ml 11/18/16 06:10: Alanine Aminotransferase (ALT/SGPT) 28L, Albumin 3.2L, Albumin/Globulin Ratio 1.280, Alkaline Phosphatase 67, Anion Gap 12.2, Aspartate Amino Transf (AST/SGOT ) 16, BUN/Creatinine Ratio 31H, Basophils # (Auto) 0.0, Basophils (%) (Auto) 0, Blood Urea Nitrogen 29H, Calcium Level 8.8, Calcium/Ionized Calcium Ratio 4.4, Calculated Osmolality 275L, Carbon Dioxide Level 23, Chloride Level 107, Creatinine 0.94, Eosinophils # (Auto) 0.1, Eosinophils (%) (Auto) 1, Estimat Glomerular Filtration Rate 69.2, Estimated GFR (Non- 57.2, Glucose Level 131#H, Hematocrit 27.20L, Hemoglobin 8.8L, Lymphocytes # (Auto) 2.2, Lymphocytes (%) (Auto) 17L, Mean Corpuscular Hemoglobin 27.5, Mean Corpuscular Hemoglobin Concent 32.4, Mean Corpuscular Volume 85, Mean Platelet Volume 10.7H, Monocytes # (Auto) 1.1, Monocytes (%) (Auto) 8, Neutrophils # ( Auto) 9.4, Neutrophils (%) (Auto) 73H, Platelet Count 247, Potassium Level 4.4, Prothromb Time International Ratio 2.6H, Prothrombin Time 29.2H, Red Blood Count 3.20L, Red Cell Distribution Width 15.4, Smear Scan , Sodium Level 138, Total Bilirubin 0.7, Total Protein 5.7L, White Blood Count 12.87H 11/18/16 13:22: Hemoglobin 8.7L 11/19/16 05:26: Alanine Aminotransferase (ALT/SGPT) 21L, Albumin 3.0L, Albumin/Globulin Ratio 1.304, Alkaline Phosphatase 66, Anion Gap 11.7, Aspartate Amino Transf (AST/SGOT ) 18, BUN/Creatinine Ratio 21H, Basophils # (Auto) 0.0, Basophils (%) (Auto) 0, Blood Urea Nitrogen 24H, Calcium Level 8.9, Calcium/Ionized Calcium Ratio 4.6, Calculated Osmolality 273L, Carbon Dioxide Level 29, Chloride Level 102, Creatinine 1.14, Eosinophils # (Auto) 0.2, Eosinophils (%) (Auto) 1, Estimat Glomerular Filtration Rate 55.4, Estimated GFR (Non- 45.8, Glucose Level 139H, Hematocrit 26.50L, Hemoglobin 8.4L, Lymphocytes # (Auto) 1.8 , Lymphocytes (%) (Auto) 17L, Mean Corpuscular Hemoglobin 27.2, Mean Corpuscular Hemoglobin Concent 31.7, Mean Corpuscular Volume 86, Mean Platelet Volume 10.7H, Monocytes # (Auto) 1.0, Monocytes (%) (Auto) 9, Neutrophils # ( Auto) 7.8, Neutrophils (%) (Auto) 72H, Platelet Count 233, Potassium Level 4.6, Prothromb Time International Ratio 2.7H, Prothrombin Time 30.4H, Red Blood Count 3.09L, Red Cell Distribution Width 15.6, Smear Scan Yes, Sodium Level 138 , Total Bilirubin 0.6, Total Protein 5.3L, White Blood Count 10.90, C-Reactive Protein 0.60, Troponin I < 0.012 11/19/16 12:05: Hematocrit 27.20L, Hemoglobin 8.7L, Troponin I < 0.012, Lactic Acid Level 1.4 11/19/16 18:00: Hematocrit 29.80L, Hemoglobin 9.7L 11/20/16 05:29: Hematocrit 27.80L, Hemoglobin 9.1L, Albumin 3.5, Anion Gap 13.3, Basophils # ( Auto) 0.0, Basophils (%) (Auto) 0, Blood Urea Nitrogen 22H, Calcium Level 9.2, Carbon Dioxide Level 30H, Chloride Level 98, Creatinine 1.12, Eosinophils # ( Auto) 0.1, Eosinophils (%) (Auto) 1, Estimat Glomerular Filtration Rate 56.5, Estimated GFR (Non- 46.7, Glucose Level 142H, Lymphocytes # ( Auto) 1.8, Lymphocytes (%) (Auto) 15L, Mean Corpuscular Hemoglobin 27.7, Mean Corpuscular Hemoglobin Concent 32.7, Mean Corpuscular Volume 85, Mean Platelet Volume 10.6H, Monocytes # (Auto) 1.1, Monocytes (%) (Auto) 9, Neutrophils # ( Auto) 8.6, Neutrophils (%) (Auto) 74H, Phosphorus Level 4.5, Platelet Count 265 , Potassium Level 4.2, Prothromb Time International Ratio 2.1H, Prothrombin Time 23.8H, Red Blood Count 3.28L, Red Cell Distribution Width 15.1, Sodium Level 137, White Blood Count 11.63H MIRTA 11/19 Atrial fibrillation, rate controlled. IMAGING 11/19/16 ACUTE ABD SERIES INDICATION: Abdominal pain. TECHNIQUE: Supine and upright views of the abdomen were obtained with a single view of the chest. FINDINGS: The lungs appear clear. There are surgical clips seen in the left axilla. There is anterior/inferior dislocation of the right humeral head. There is no evidence of free intraperitoneal gas or pneumatosis. The overall bowel gas pattern is unremarkable. There is diffuse spondylosis and degenerative change in the hips. IMPRESSION: No acute abdominal abnormality is identified. Note is made of inferior dislocation of the right shoulder. ASSESSMENT Renata Powell is a 81 year old female admitted 11/17 with rectal bleeding that awoke her from sleep. She was mildly coagulopathic on admit with INR 3.4. She had some RUQ abdominal pain of uncertain significance. She has several chronic problems. PLAN * Upper GI Bleed: Based on history, elevated BUN on admit. Also considered diverticulosis vs. ischemic colitis vs. other. Mild coagulopathy due to warfarin contributed. Not reversed with vitamin K. Warfarin held. Pantoprazole drip stopped 11/19. Monitor and consulted surgery for consideration of EGD. * Acute Blood Loss Anemia: Hgb norma 8.4 11/19. Transfuse for Hgb < 8 or precipitous drop. Has not been transfused thus far. * Coagulopathy due to Warfarin: Did not receive vitamin K on admit. Warfarin on hold. Giving vitamin K 11/20 with possible EGD planned. Monitor INR trend. * Abdominal Pain: Resolved. Acute abdominal series unremarkable. [place]. * F/E/N: Surgical soft. Peripheral IV. * Prophylaxis: SCDs, DAVID hose. * Code Status: DNR * Dispo: Inpatient. Surgery consult pending. CHRONIC ISSUES * CAD: Not on aspirin. Check troponin trend. * Constipation: Bowel regimen * HLD: Simvastatin * HTN: Lisinopril * Atrial fibrillation: Warfarin on hold due to GI bleed. Digoxin. * Diabetes Mellitus Type II: * Depression: Sertraline * Edema? Furosemide * CKD Stage III: Cr within normal limits this admission. Observe. * Chronic Diastolic CHF, Severe MR: Stable. Review prior echo. From prior admission: Moderate to Severe MR on echo, had her follow-up with Dr. García. Review records. Furosemide. 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 Observe. CRIS ALICIA MD Nov 20, 2016 14:53
--- NOTE | 2016-11-20 19:12 | NUR ---
Renata rests in bed under the covers for most of the afternoon. She is cooperative with cares and able to get up to the side of the bed for meals and interventions. She is able to make needs known and family is at the bedside. Vitamin K runs over an hour this afternoon. Dr. Acosta in to consult patient in the evening for possible endoscopy in the AM. Care relinquished and report given to Abril LEAVITT.
--- NOTE | 2016-11-20 19:15 | NUR ---
Report received, care assumed. Pt resting in bed with lights turned down.
--- NOTE | 2016-11-20 20:45 | NUR ---
Pt took evening meds without difficulty. No c/o discomfort. Consent for tomorrow's procedure obtained. Explained need for NPO at midnight. Pt very cooperative with cares. Denies other needs. Call light in reach, side rails up times two, bed alarm on, H2O and personal items in reach.
[2016-11-20] MEDS: LIDOCAINE PATCH REMOVAL TOP SCH (20:59)
[2016-11-20] MEDS: SIMvastatin 20 MG (ZOCOR) TAB PO SCH (21:08)
[2016-11-20] MEDS: INSULIN GLARGINE 1 UNIT/0.01ML (LANTUS) DOSE SC SCH (21:11)
[2016-11-21] VITALS (13 sets, daily range): BP systolic 91–136; BP diastolic 51–73
--- NOTE | 2016-11-21 | NUR ---
Pt woke briefly to use BSC. Voided without difficulty. Assisted back to bed. Denies other needs. Call light in reach, bed alarm on.
--- NOTE | 2016-11-21 05:30 | NUR ---
Pt has been resting well. No reports discomfort. Appears to be sleeping now, eyes closed, respirations even et unlabored. No needs at this time. Call light in reach.
[2016-11-21 06:26] LABS: BASOPHILS % (AUTO) 0 % (0-2); EOSINOPHILS # (AUTO) 0.2 10^3uL; EOSINOPHILS % (AUTO) 2 % (0-4); LYMPHOCYTES # (AUTO) 1.9 X10^3; MEAN CORPUSCULAR HEMOGLOBIN 27.8 PG (26.0-34.0); MEAN CORPUSCULAR HGB CONC 32.6 g/dL (31.0-37.0); MEAN CORPUSCULAR VOLUME 85 FL (80-100); MEAN PLATELET VOLUME 10.7 FL (6.0-9.5); MONOCYTES # (AUTO) 1.1 X10^3; MONOCYTES % (AUTO) 9 % (3-11); NEUTROPHILS # (AUTO) 8.6 X10^3; NEUTROPHILS % (AUTO) 72 % (51-67); PLATELET COUNT 285 10^3uL (150-450); WHITE BLOOD COUNT 11.84 10^3uL (4.0-11.0)
[2016-11-21 06:48] LABS: ALBUMIN 3.3 g/dL (3.4-5.0); ANION GAP 11.4 MEQ/L (3-15)
[2016-11-21] MEDS: INSULIN LISPRO 1 UNIT/0.01 ML (HUMALOG) DOSE SC SCH ×6 (07:24→21:00)
--- NOTE | 2016-11-21 08:10 | NUR ---
Pt denies any pain. Asking "what time is my surgery today?" Information given to patient. Pt denies any other needs.
--- NOTE | 2016-11-21 10:53 | CONSULTATION REPORT ---
ATTENDING PHYSICIAN: Renato Keen MD CONSULTING PHYSICIAN: Pepito Acosta MD REPORT DATE OF REPORT: November 20, 2015 FINDINGS: GI bleed. DIAGNOSIS: 1. GI bleed, likely upper GI source. 2. Chronic anticoagulation. 3. Atrial fibrillation. 4. Abdominal pain. RECOMMENDATIONS: EGD has been scheduled for tomorrow to follow the elective cases in the morning. The risks and benefits were discussed with the patient, including bleeding and perforation, and she agreed to proceed. This will be scheduled. HISTORY AND PRESENT ILLNESS: The patient is an 81-year-old who was admitted on November 17 after she had noted, what appeared to be melanotic stools that awoke her from her sleep on November 17. She was brought in and found to be coagulopathic with an INR of 3.4, on Coumadin for atrial fibrillation. She also has been experiencing right-sided abdominal pain for the last several days, or may be even weeks, which has not been completely explained. Nausea has also been an issue and she has had some vomiting with bright red blood contained within the emesis within the last several days, either right before her admission or shortly thereafter. Her INR today was down to 2.1. She has never had an EGD. It has been decades since she had a colonoscopy, according to her daughters who accompanied her at the bedside today. Her blood pressure this afternoon was 120/54, but there was some concern amongst the nursing staff that she had orthostatic hypotension. She has been receiving vitamin K through the day today. She had a documented bloody stool yesterday as well as one on November 18. PAST MEDICAL HISTORY: 1. Atrial fibrillation. 2. Hypertension. 3. Diabetes mellitus, insulin requiring. 4. Hyperlipidemia. 5. Chronic pain. 6. Breast cancer. 7. Skin cancer. 8. Coronary artery disease. She carries no history of [place]. 9. Depression. 10. IBS. 11. Constipation. 12. Osteoarthritis. 13. Right rotator cuff injury. PAST SURGICAL HISTORY: 1. Left mastectomy. 2. Total hysterectomy. 3. Bilateral cataract surgery. 4. Right total knee replacement. 5. Cholecystectomy. 6. Back surgery. 7. Carpal tunnel surgery. ALLERGIES: 1. Penicillin. 2. Sulfa. 3. Gabapentin. 4. Morphine. 5. Silver sulfadiazine. MEDICATIONS: See list. She is on Coumadin. FAMILY HISTORY: See chart. SOCIAL HISTORY: She lives at [facility] in [place]. She is . She has 6 children and 2 of her daughters are at the bedside tonight. She has no history of smoking or alcohol use. REVIEW OF SYSTEMS: As above. PHYSICAL EXAM VITAL SIGNS: Temperature 97.3, heart rate 75, blood pressure 120/54 and respiratory rate 18. O2 sats are 99% on room air. GENERAL: The patient is an elderly female alert and oriented x3 in no acute distress. Her daughters did assist her in providing some of the history today because she had some mild confusion, or at least that is what the daughters suggested. HEENT: No scleral icterus. LUNGS: Clear to auscultation bilaterally. HEART: S1, S2, irregularly irregular rhythm. ABDOMEN: Bowel sounds are present. Soft and minimally tender to deep palpation on the right side. No masses, hernias or organomegaly were noted. There was no guarding or rebound tenderness. VASCULAR: Femoral pulses were difficult to palpate on either side. SKIN: Cool and dry. NEURO: Grossly intact, but she does have difficulty ambulating and has been dependent on a walker. IMAGING: An abdominal series from November 19 was unremarkable.
[2016-11-21] MEDS ORDERED: LIDOCAINE 4% TOPICAL 4.5 ML SYR ONE (11:12)
[2016-11-21] MEDS ORDERED: SIMETHICONE 40 MG/0.6 ML (MYLICON DROPS) ORAL SYRINGE ONE (11:12)
--- NOTE | 2016-11-21 11:18 | Progress Note-A/P (E) ---
Progress Note Subjective: Patient is up to side of bed. She feels like she needs to urinate but she can not. Will have staff bladder scan her. Patient is asking for drink. She is somewhat nihilistic regarding her prognosis. She states she will probably not make it to her EGD because she isn' t eating and she is going to from it. Daughter is at bedside. Discussed current findings and care plans. Questions answered. Objective: Current Medications Acetaminophen 650 mg Q6H PRN PO Ondansetron 4 mg Q6H PRN IV Pantoprazole IV Acetaminophen 325 mg BID PO Digoxin 0.125 mg Q48H PO Docusate 100 mg BID PRN PO Acetaminophen/ Hydrocodone 5 Mg/325 Mg 1-2 tabs Q6H PRN PO Insulin Glargine 18 unit HS SC Insulin Human Lispro 10 unit BID@ SC Lisinopril 5 mg DAILY PO Sertraline 50 mg DAILY PO Calcium/Vitamin D 2 each DAILY PO Simvastatin 20 mg HS PO Vital Signs Date Time Temp Pulse Resp B/P Pulse Ox O2 Delivery O2 Flow Rate FiO2 11/21/16 08:00 77 129/56 97 135/73 108 91/62 11/21/16 08:00 98.1 8 98 Room air I & O Past 24 hrs 11/21/16 06:59 Intake Total 1366 ml Output Total 1400 ml Balance -34 ml Intake Oral 1366 ml Output Urine Total 1400 ml Physical Exam General--Awake and alert. No distress. HEENT--Normocephalic. MMM in oral cavity. Lungs--Clear to auscultation bilaterally. Nonlabored respirations. Heart--Irregular rhythm. Regular rate. Abdomen--Normal bowel sounds. Soft. Nondistended. Nontender. Extremities--Mild lower extremity edema noted. Past 24 hour Lab Results 11/21/16 05:35 Laboratory Results Past 24 Hrs 11/21/16 05:35: Albumin 3.3, Anion Gap 11.4, Basophils # (Auto) 0.0, Basophils (%) (Auto) 0, Blood Urea Nitrogen 24, Calcium Level 9.1, Carbon Dioxide Level 29, Chloride Level 99, Creatinine 0.94, Eosinophils # (Auto) 0.2, Eosinophils (%) (Auto) 2, Estimat Glomerular Filtration Rate 69.2, Estimated GFR (Non- 57.2, Glucose Level 136, Hematocrit 27.30, Hemoglobin 8.9, Lymphocytes # (Auto) 1.9, Lymphocytes (%) (Auto) 16, Mean Corpuscular Hemoglobin 27.8, Mean Corpuscular Hemoglobin Concent 32.6, Mean Corpuscular Volume 85, Mean Platelet Volume 10.7, Monocytes # (Auto) 1.1, Monocytes (%) (Auto) 9, Neutrophils # (Auto ) 8.6, Neutrophils (%) (Auto) 72, Phosphorus Level 4.0, Platelet Count 285, Potassium Level 3.8, Prothromb Time International Ratio 1.3, Prothrombin Time 14.6, Red Blood Count 3.20, Red Cell Distribution Width 15.6, Sodium Level 136, White Blood Count 11.84 Imaging Results None Assessment/Plan GI bleed with anemia Currently Hgb is stable at 8.9. Dropped from 10.5, norma of 8.4. Not yet transfused. Monitor closely. Will transfuse if hgb drops less than 8. EGD done today by Dr. Acosta, revealed duodenal ulcer. Will treat with BID PPI and sucralfate ACHS. H. pylori pending. F/u with surgery in 2-3 weeks with surgery. PUD/duodenal ulcer Noted on EGD from 1.4.17, see above for treatment plan. Supra-therapeutic INR. 3.4 with reported bleeding. Not treated with vitamin K. Today 1.3, warfarin has been held. Restart once stools normalize. Atrial fibrillation On warfarin and digoxin at home. Dig level normal, will continue this. HTN On lisinopril and metoprolol at home, will continue lisinopril here, held BB due to bleed. BP has been controlled. Will continue to hold. Diabetes Mellitus Home regimen of lantus 18 units and 10 units of humalog with meals. Monitor accu cheks ([phone]), provide SSI. HLD Lovastatin at home, simvastatin equivalent here. Chronic pain Continue home acetaminophen and prn hydrocodone/acetaminophen CAD/[place] Holding home metoprolol per above, held home ASA due to bleed. Depression Continue home sertraline. Constipation On prn colace at home, will continue to provide. OA On calcium supplementation at home, will continue CKD Stage III Cr within normal limits this admission despite PPI. Monitor. Chronic Diastolic CHF, Severe MR: Stable On previous echo, moderate to severe MR patient follows with Dr. García. Furosemide per home dose. DVT proph SCD's for now. Code status DNR confirmed with patient. FEN NPO, will advance today post EGD. Electrolytes normal. IVF's, one liter provided in ED. Dispo Patient is meeting inpatient criteria. Will start PPI and sucralfate. Held coumadin, look to restart one week after PPI and sucralfate. Advancing diet today. Monitor hgb closely SANTIAGO MITCHELL MD Nov 21, 2016 11:18
--- NOTE | 2016-11-21 11:32 | NUR ---
Pt has urge to void but can't on BSC. Bladder scan ordered. 357mls found, orders given to place torres catheter at this time.
[2016-11-21 11:55] LABS: BILIRUBIN,URINE Negative (Negative); CLARITY,URINE Clear; COLOR,URINE Yellow; GLUCOSE, URINE (UA) Negative (Negative); LEUKOCYTE ESTERASE ,URINE Negative (Negative); PH,URINE 5.5 (5.0 - 8.0); UROBILINOGEN,URINE 0.2 mg/dL (0.2-1.0)
[2016-11-21] MEDS ORDERED: LACTATED RINGERS 1,000 ML IV ONE (16:59)
[2016-11-21] MEDS ORDERED: MIDAZOLAM 2 MG/2 ML (VERSED) VIAL ONE (17:10)
[2016-11-21] MEDS ORDERED: ALFENTANIL 500 MCG/ML (ALFENTA) 5 ML AMP IV ONE (17:10)
[2016-11-21] MEDS ORDERED: PROPOFOL 20 ML IV ONE (17:10)
--- NOTE | 2016-11-21 18:06 | NUR ---
1715-Pt to OR for EGD via bed at this time.
[2016-11-21] MEDS: SERTRALINE 50 MG (ZOLOFT) TABLET PO SCH (18:32)
[2016-11-21] MEDS: LIDOCAINE (LIDODERM) 5% PATCH TOP SCH (18:32)
[2016-11-21] MEDS: FUROSEMIDE 40 MG (LASIX) TAB PO SCH (18:33)
[2016-11-21] MEDS: CALCIUM CARBONATE 500 MG + VITAMIN D 200 IU TABLET PO SCH (18:33)
[2016-11-21] MEDS: lisINopril 5 MG (PRINIVIL) TABLET PO SCH (18:33)
[2016-11-21] MEDS: HYDROcodone/APAP 10 MG/325 MG (NORCO) TAB PO SCH ×2 (18:36→21:00)
[2016-11-21] MEDS ORDERED: FAMOTIDINE 20 MG (PEPCID) TABLET ONE (19:45)
[2016-11-21] MEDS ORDERED: PANTOPRAZOLE 40 MG (PROTONIX) TAB PO ONE (19:49)
--- NOTE | 2016-11-21 20:10 | NUR ---
1809-Pt returns from OR at this time. Alert and oriented. Denies any pain. Scheduled morning meds given now that pt is no longer NPO. Clear liquids given. Pt's family at bedside. IV saline locked at this time. Pt's vitals stable. 1899-Report given to Lazaro Bolden RN at this time.
[2016-11-21] MEDS: SUCRALFATE 1 GM (CARAFATE) TAB PO SCH (20:19)
[2016-11-21] MEDS: SIMvastatin 20 MG (ZOCOR) TAB PO SCH (20:19)
[2016-11-21] MEDS: PANTOPRAZOLE 20 MG (PROTONIX) TABLET PO SCH (20:20)
--- NOTE | 2016-11-21 21:23 | NUR ---
Pt requests that the b/p cuff be taken off and she is refusing tohave the remainder of her post op vitals and then her regular q 4 hours vitals through the night. States she wants to rest and cant do that with all of the interuptions. I offered her oral care and she refused that also. Patients RN () notified.
[2016-11-21] MEDS: INSULIN GLARGINE 1 UNIT/0.01ML (LANTUS) DOSE SC SCH (21:45)
[2016-11-22] VITALS (7 sets, daily range): BP systolic 82–126; BP diastolic 44–70
[2016-11-22] MEDS: LIDOCAINE PATCH REMOVAL TOP SCH ×2 (05:15→21:19)
--- NOTE | 2016-11-22 05:16 | NUR ---
Lidocaine patch administered last evening removed at this time.
[2016-11-22 06:45] LABS: ALBUMIN 3.9 g/dL (3.4-5.0); ANION GAP 17.5 MEQ/L (3-15); BASOPHILS % (AUTO) 0 % (0-2); EOSINOPHILS # (AUTO) 0.2 10^3uL; EOSINOPHILS % (AUTO) 1 % (0-4); LYMPHOCYTES # (AUTO) 1.9 X10^3; MAGNESIUM* 1.8 mg/dL (1.6-2.3); MEAN CORPUSCULAR HEMOGLOBIN 27.7 PG (26.0-34.0); MEAN CORPUSCULAR HGB CONC 32.4 g/dL (31.0-37.0); MEAN CORPUSCULAR VOLUME 86 FL (80-100); MEAN PLATELET VOLUME 10.7 FL (6.0-9.5); MONOCYTES # (AUTO) 1.4 X10^3; MONOCYTES % (AUTO) 12 % (3-11); NEUTROPHILS # (AUTO) 8.3 X10^3; NEUTROPHILS % (AUTO) 71 % (51-67); PHOSPHORUS 4.9 mg/dL (2.4-4.9); PLATELET COUNT 355 10^3uL (150-450); WHITE BLOOD COUNT 11.82 10^3uL (4.0-11.0)
--- NOTE | 2016-11-22 07:00 | NUR ---
Slept most of the night. Was not disturbed for vitals while sleeping as patient had early in evening refused night time vitals.
[2016-11-22] MEDS: INSULIN LISPRO 1 UNIT/0.01 ML (HUMALOG) DOSE SC SCH ×6 (07:30→21:00)
--- NOTE | 2016-11-22 07:40 | OPERATIVE REPORT ---
DATE OF OPERATION: 11/21/2016 PRE-OPERATIVE DIAGNOSIS: GI bleeding POST-OPERATIVE DIAGNOSIS: Duodenal ulcer OPERATIVE PROCEDURE: Esophagogastroduodenoscopy with biopsies SURGEON: Pepito Acosta MD ANESTHESIA: Monitored anesthesia care FINDINGS: 1. There was an ulcer seen in the duodenal bulb oriented along its medial aspect. There was no active bleeding and no blood seen in the stomach or duodenum. Biopsies were obtained from the gastric antrum for JEANNETTE and histology. 2. The stomach and esophagus appeared normal with no erythema, inflammation, neoplasia or ulceration. INDICATIONS: The patient is an 81-year-old who has been admitted for anemia and has had signs and symptoms of gastrointestinal bleeding. She presents here for upper endoscopy. She does take Coumadin for atrial fibrillation, but this has been stopped and her INR today was 1.3. DESCRIPTION OF PROCEDURE: The patient was informed of the risks and benefits and agreed to proceed. She was administered IV sedation and a bite block was placed. The lighted endoscope was passed down the esophagus and into the stomach. Air was insufflated. The pylorus was cannulated and the first, second and third portions of the duodenum were visualized. The second and third portions were normal, but within the duodenum, this ulcer was noted. It was photographed. There was no visible vessel or active bleeding from it, but there was some slight trauma at its edge probably induced by the scope passing through there. There was no persistent bleeding. The scope was brought back into the stomach where the antrum, body and fundus were inspected. No bleeding or ulcers were seen there. Retroflexion revealed a normal proximal stomach. The diaphragmatic hiatus was seen at 38 cm and the squamocolumnar junction was at the same level. It was intact without any inflammation or ulcers. The esophagus appeared normal throughout. The scope was removed completing the procedure. The patient tolerated the procedure without complications.
[2016-11-22] MEDS: CALCIUM CARBONATE 500 MG + VITAMIN D 200 IU TABLET PO SCH (08:50)
[2016-11-22] MEDS: FUROSEMIDE 40 MG (LASIX) TAB PO SCH (08:51)
[2016-11-22] MEDS: SERTRALINE 50 MG (ZOLOFT) TABLET PO SCH (08:51)
[2016-11-22] MEDS: DIGOXIN 0.125 MG (LANOXIN) TAB PO SCH (08:51)
[2016-11-22] MEDS: lisINopril 5 MG (PRINIVIL) TABLET PO SCH (08:51)
[2016-11-22] MEDS: HYDROcodone/APAP 10 MG/325 MG (NORCO) TAB PO SCH ×2 (08:51→20:10)
[2016-11-22] MEDS: SUCRALFATE 1 GM (CARAFATE) TAB PO SCH ×4 (08:59→20:09)
[2016-11-22] MEDS: PANTOPRAZOLE 20 MG (PROTONIX) TABLET PO SCH ×2 (08:59→17:10)
[2016-11-22] MEDS ORDERED: POTASSIUM CHLORIDE ER 20 MEQ TABLET PO ONE (09:10)
[2016-11-22] MEDS: LIDOCAINE (LIDODERM) 5% PATCH TOP SCH (10:03)
--- NOTE | 2016-11-22 10:30 | NUR ---
0810-Pt states she is "very tired" this morning. Denies any pain. Sits on edge of bed for breakfast. 1000-Up to shower at this time, tolerates well.
--- NOTE | 2016-11-22 10:37 | NUR ---
Dr Quintero here to see patient at this time
--- NOTE | 2016-11-22 15:03 | NUR ---
Visited with Pt. regarding her discharge. Pt. does not want to go to skilled care and stated her daughter will be here in the morning to pick her up and take her back to [place]. SW informed Dr. Quintero and [place] of this.
--- NOTE | 2016-11-22 15:17 | NUR ---
Pt rested this afternoon without complaints. Will continue to monitor.
--- NOTE | 2016-11-22 17:49 | NUR ---
Up to chair for supper, denies any needs.
--- NOTE | 2016-11-22 18:40 | Progress Note-A/P (E) ---
Progress Note Subjective: Patient is feeling better. She is somewhat more feisty than she has recently been. She has asked that no visitors come as she is not wanting to see her children as they are causing her stress. She denies any nausea, but does endorse a decreased appetite. Discussed EGD findings and treatment options. Questions answered. Patient verbalizes understanding. She is wanting to be d/c'd back to independent living tomorrow, but she does not want [facility] care. Objective: Current Medications Acetaminophen 650 mg Q6H PRN PO Ondansetron 4 mg Q6H PRN IV Pantoprazole IV Acetaminophen 325 mg BID PO Digoxin 0.125 mg Q48H PO Docusate 100 mg BID PRN PO Acetaminophen/ Hydrocodone 5 Mg/325 Mg 1-2 tabs Q6H PRN PO Insulin Glargine 18 unit HS SC Insulin Human Lispro 10 unit BID@ SC Lisinopril 5 mg DAILY PO Sertraline 50 mg DAILY PO Calcium/Vitamin D 2 each DAILY PO Simvastatin 20 mg HS PO Vital Signs Date Time Temp Pulse Resp B/P Pulse Ox O2 Delivery O2 Flow Rate FiO2 11/22/16 15:42 98.1 102 20 86/44 97 Room air I & O Past 24 hrs 11/22/16 07:00 Intake Total 320 ml Output Total 2350 ml Balance -2030 ml Intake Oral 320 ml Output Urine Total 2350 ml Physical Exam General--Awake and alert. No distress. HEENT--Normocephalic. MMM in oral cavity. Lungs--Clear to auscultation bilaterally. Nonlabored respirations. Heart--Irregular rhythm. Regular rate. Abdomen--Normal bowel sounds. Soft. Nondistended. Nontender. Extremities--Mild lower extremity edema noted. Past 24 hour Lab Results 11/22/16 06:00 Laboratory Results Past 24 Hrs 11/22/16 06:00: Albumin 3.9, Anion Gap 17.5, Basophils # (Auto) 0.0, Basophils (%) (Auto) 0, Blood Urea Nitrogen 23, Calcium Level 9.3, Carbon Dioxide Level 25, Chloride Level 97, Creatinine 1.06, Eosinophils # (Auto) 0.2, Eosinophils (%) (Auto) 1, Estimat Glomerular Filtration Rate 60.2, Estimated GFR (Non- 49.8, Glucose Level 183, Hematocrit 30.60, Hemoglobin 9.9, Lymphocytes # (Auto) 1.9, Lymphocytes (%) (Auto) 16, Magnesium Level 1.8, Mean Corpuscular Hemoglobin 27.7, Mean Corpuscular Hemoglobin Concent 32.4, Mean Corpuscular Volume 86, Mean Platelet Volume 10.7, Monocytes # (Auto) 1.4, Monocytes (%) ( Auto) 12, Neutrophils # (Auto) 8.3, Neutrophils (%) (Auto) 71, Phosphorus Level 4.9, Platelet Count 355, Potassium Level 3.4, Red Blood Count 3.58, Red Cell Distribution Width 15.8, Sodium Level 136, White Blood Count 11.82 Imaging Results None Assessment/Plan GI bleed with anemia Currently Hgb is stable at 9.9. Dropped from 10.5 on admission to a norma of 8.4. No transfusion during this admission. Monitor closely. Will transfuse if hgb drops less than 8. EGD done Saturday by Dr. Acosta, revealed duodenal ulcer. Treating with BID PPI and sucralfate ACHS. H. pylori pending. F/u with surgery in 2-3 weeks with surgery. PUD/duodenal ulcer Noted on EGD from 1.4.17, see above for treatment plan. Supra-therapeutic INR. 3.4 with reported bleeding. Not treated with vitamin K. Warfarin has been held. Restart once stools normalize. Atrial fibrillation On warfarin and digoxin at home. Dig level normal, will continue this. HTN On lisinopril and metoprolol at home, will continue lisinopril here, held BB due to bleed. BP has been controlled. Will continue to hold BB. Diabetes Mellitus Home regimen of lantus 18 units and 10 units of humalog with meals. Monitor accu cheks (80-168), provide SSI. HLD Lovastatin at home, simvastatin equivalent here. Chronic pain Continue home acetaminophen and prn hydrocodone/acetaminophen CAD/CO Holding home metoprolol per above, held home ASA due to bleed. Depression Continue home sertraline. Constipation On prn colace at home, will continue to provide prn. OA On calcium supplementation at home, will continue CKD Stage III Cr within normal limits this admission despite PPI. Monitor. Chronic Diastolic CHF, Severe MR Stable, seen on previous echo, moderate to severe MR patient follows with Dr. García. Furosemide per home dose. DVT proph SCD's for now. Code status DNR confirmed with patient. FEN Diabetic diet. Electrolytes--mild hypokalemia, replacing orally. IVF's, one liter provided in ED. Dispo Patient is meeting inpatient criteria. Continue PPI and sucralfate to treat duodenal ulcer. Held coumadin, look to restart one week after PPI and sucralfate (November 28, 2016). Monitor hgb closely. Repeating labs tomorrow morning. Look to d/c back to home setting tomorrow. Updated daughter. SANTIAGO MITCHELL MD Nov 22, 2016 18:40
--- NOTE | 2016-11-22 19:11 | NUR ---
Report given to Larry Gutierrez RN at this time.
--- NOTE | 2016-11-22 20:00 | NUR ---
Resting in bed. Is alert and oriented. Denies any discomforts. Anxious to go home tomorrow. Requests pudding at HS, which was given to her. No concerns voiced at this time.
[2016-11-22] MEDS: SIMvastatin 20 MG (ZOCOR) TAB PO SCH (20:09)
[2016-11-22] MEDS: INSULIN GLARGINE 1 UNIT/0.01ML (LANTUS) DOSE SC SCH (20:11)
[2016-11-23] VITALS (8 sets, daily range): BP systolic 89–129; BP diastolic 50–82
--- NOTE | 2016-11-23 | NUR ---
Patient continues to rest well. Ambulates to the bathroom without assistance. No needs at this time.
[2016-11-23 06:29] LABS: BASOPHILS % (AUTO) 0 % (0-2); EOSINOPHILS # (AUTO) 0.2 10^3uL; EOSINOPHILS % (AUTO) 1 % (0-4); LYMPHOCYTES # (AUTO) 1.8 X10^3; MEAN CORPUSCULAR HGB CONC 31.8 g/dL (31.0-37.0); MEAN CORPUSCULAR VOLUME 85 FL (80-100); MEAN PLATELET VOLUME 10.8 FL (6.0-9.5); MONOCYTES # (AUTO) 1.2 X10^3; MONOCYTES % (AUTO) 10 % (3-11); NEUTROPHILS # (AUTO) 8.8 X10^3; NEUTROPHILS % (AUTO) 73 % (51-67); PLATELET COUNT 322 10^3uL (150-450); WHITE BLOOD COUNT 12.13 10^3uL (4.0-11.0)
--- NOTE | 2016-11-23 06:30 | NUR ---
Rested well tonight. Ambulates to the bathroom without difficulty. Blood sugars have remained Wal. No concerns this morning. Anxious to go home today.
[2016-11-23 06:45] LABS: ALBUMIN 3.4 g/dL (3.4-5.0); ANION GAP 13.6 MEQ/L (3-15); PHOSPHORUS 4.2 mg/dL (2.4-4.9)
[2016-11-23] MEDS: INSULIN LISPRO 1 UNIT/0.01 ML (HUMALOG) DOSE SC SCH ×6 (07:11→21:00)
[2016-11-23] MEDS ORDERED: SODIUM CHLORIDE 250 ML IV SCH (07:45)
--- NOTE | 2016-11-23 07:45 | NUR ---
Patient sitting up in recliner upon shift assessment. Alert and oriented X3. Denies pain or distress. HR RRR. Lung sounds CTAB. Aguilar catheter draining clear yellow urine. Updated patient on plan of care for shift including IVF bolus for increased creatinine. Will continue to monitor.
[2016-11-23] MEDS: SUCRALFATE 1 GM (CARAFATE) TAB PO SCH ×4 (07:47→20:59)
[2016-11-23] MEDS: PANTOPRAZOLE 20 MG (PROTONIX) TABLET PO SCH ×2 (07:47→17:14)
--- NOTE | 2016-11-23 07:50 | Progress Note-A/P (E) ---
Progress Note Subjective: Patient is reporting that she is feeling ok today, not great. She continues to have decreased appetite, however no nausea. Discussed current findings, including creatinine and possible causes, as well as hemoglobin. Discussed deferring d/c plans. Questions answered. Objective: Current Medications Acetaminophen 650 mg Q6H PRN PO Ondansetron 4 mg Q6H PRN IV Pantoprazole IV Acetaminophen 325 mg BID PO Digoxin 0.125 mg Q48H PO Docusate 100 mg BID PRN PO Acetaminophen/ Hydrocodone 5 Mg/325 Mg 1-2 tabs Q6H PRN PO Insulin Glargine 18 unit HS SC Insulin Human Lispro 10 unit BID@ SC Lisinopril 5 mg DAILY PO Sertraline 50 mg DAILY PO Calcium/Vitamin D 2 each DAILY PO Simvastatin 20 mg HS PO Vital Signs Date Time Temp Pulse Resp B/P Pulse Ox O2 Delivery O2 Flow Rate FiO2 11/23/16 04:00 97.4 86 20 124/68 96 Room air I & O Past 24 hrs 11/23/16 07:00 Intake Total 1616 ml Output Total 1150 ml Balance 466 ml Intake Oral 1616 ml Output Urine Total 1150 ml Physical Exam General--Awake and alert. No distress. HEENT--Normocephalic. MMM in oral cavity. Lungs--Clear to auscultation bilaterally. Nonlabored respirations. Heart--Irregular rhythm. Regular rate. Abdomen--Normal bowel sounds. Soft. Nondistended. Nontender. Extremities--No lower extremity edema noted. Past 24 hour Lab Results 11/23/16 05:25 Laboratory Results Past 24 Hrs 11/23/16 05:25: Albumin 3.4, Anion Gap 13.6, Basophils # (Auto) 0.0, Basophils (%) (Auto) 0, Blood Urea Nitrogen 31, Calcium Level 9.2, Carbon Dioxide Level 26, Chloride Level 96, Creatinine 1.31, Eosinophils # (Auto) 0.2, Eosinophils (%) (Auto) 1, Estimat Glomerular Filtration Rate 47.2, Estimated GFR (Non- 39.0, Glucose Level 159, Hematocrit 28.00, Hemoglobin 8.9, Lymphocytes # (Auto) 1.8, Lymphocytes (%) (Auto) 15, Magnesium Level 2.0, Mean Corpuscular Hemoglobin 27.0, Mean Corpuscular Hemoglobin Concent 31.8, Mean Corpuscular Volume 85, Mean Platelet Volume 10.8, Monocytes # (Auto) 1.2, Monocytes (%) ( Auto) 10, Neutrophils # (Auto) 8.8, Neutrophils (%) (Auto) 73, Phosphorus Level 4.2, Platelet Count 322, Potassium Level 4.0, Red Blood Count 3.30, Red Cell Distribution Width 15.7, Sodium Level 131, White Blood Count 12.13 Imaging Results None Assessment/Plan GI bleed with anemia Currently Hgb has been stable around 9, yesterday was 9.9, today 8.9. Patient remains orthostatic. No increase in stools. Hgb dropped from 10.5 on admission to a norma of 8.4. No transfusion during this admission. Monitor closely. Will transfuse if hgb drops less than 8. EGD done Saturday by Dr. Acosta, revealed duodenal ulcer. Treating with BID PPI and sucralfate ACHS. H. pylori pending. F/u with surgery in 2-3 weeks with surgery. PUD/duodenal ulcer Noted on EGD from 1.4.17, see above for treatment plan. TYSON with stage III CKD From dehydration vs PPI administration. Holding lasix this morning, giving fluid bolus, rechecking creat this afternoon. Supra-therapeutic INR. Resolved 3.4 with reported bleeding. Not treated with vitamin K. Warfarin has been held. Restart once stools normalize. Atrial fibrillation On warfarin and digoxin at home. Dig level normal, will continue this. Warfarin on hold due to GI bleed. HTN On lisinopril and metoprolol at home, will continue lisinopril here, held BB due to bleed. BP has been controlled. Will continue to hold BB. Diabetes Mellitus Home regimen of lantus 18 units and 10 units of humalog with meals. Monitor accu cheks (80-168), provide SSI. HLD Lovastatin at home, simvastatin equivalent here. Chronic pain Continue home acetaminophen and prn hydrocodone/acetaminophen CAD/[place] Holding home metoprolol per above, held home ASA due to bleed. Depression Continue home sertraline. Constipation On prn colace at home, will continue to provide prn. OA On calcium supplementation at home, will continue Chronic Diastolic CHF, Severe MR Stable, seen on previous echo, moderate to severe MR patient follows with Dr. García. Currently holding home furosemide while giving ivfs. DVT proph SCD's for now. Code status DNR confirmed with patient. FEN Diabetic diet. Electrolytes--mild hypokalemia, improved with oral replacement. Hyponatremic, giving IVF's look for improvement. IVF's, one liter provided in ED. Dispo Patient is meeting inpatient criteria. Continue PPI and sucralfate to treat duodenal ulcer. Holding coumadin, look to restart one week after PPI and sucralfate (November 28, 2016). Hoped to return to independent living facility, however mild drop in hgb, TYSON and orthostasis are concerning. Will defer d/c, providing fluids and rechecking labs this afternoon. SANTIAGO MITCHELL MD Nov 23, 2016 07:50
[2016-11-23] MEDS: SERTRALINE 50 MG (ZOLOFT) TABLET PO SCH (08:47)
[2016-11-23] MEDS: lisINopril 5 MG (PRINIVIL) TABLET PO SCH (08:47)
[2016-11-23] MEDS: LIDOCAINE (LIDODERM) 5% PATCH TOP SCH (08:47)
[2016-11-23] MEDS: CALCIUM CARBONATE 500 MG + VITAMIN D 200 IU TABLET PO SCH (08:47)
[2016-11-23] MEDS: HYDROcodone/APAP 10 MG/325 MG (NORCO) TAB PO SCH ×2 (08:47→20:59)
[2016-11-23] MEDS: DOCUSATE SODIUM 100 MG (COLACE) CAP PO PRN (08:52)
--- NOTE | 2016-11-23 10:23 | NUR ---
SW contacted [facility] and let them know Pt. discharge has been deferred for today.
[2016-11-23 14:38] LABS: ANION GAP 16.6 MEQ/L (3-15)
--- NOTE | 2016-11-23 18:33 | NUR ---
Patient rests in long intervals throughout day. Up to chair for meals and denies dizziness with this. One small stool noted this afternoon with scant dark blood. Denies pain or distress. Call light in reach.
[2016-11-23] MEDS: SIMvastatin 20 MG (ZOCOR) TAB PO SCH (20:59)
[2016-11-23] MEDS: INSULIN GLARGINE 1 UNIT/0.01ML (LANTUS) DOSE SC SCH (21:00)
[2016-11-23] MEDS: LIDOCAINE PATCH REMOVAL TOP SCH (21:03)
[2016-11-24] VITALS (7 sets, daily range): BP systolic 92–146; BP diastolic 45–79
[2016-11-24] MEDS: SUCRALFATE 1 GM (CARAFATE) TAB PO SCH ×4 (06:37→20:43)
[2016-11-24] MEDS: PANTOPRAZOLE 20 MG (PROTONIX) TABLET PO SCH ×2 (06:37→17:15)
--- NOTE | 2016-11-24 06:49 | NUR ---
Patient rests in bed throughout night without needs. Aguilar draining easily. No reports of pain. No needs at this time.
[2016-11-24] MEDS: INSULIN LISPRO 1 UNIT/0.01 ML (HUMALOG) DOSE SC SCH ×6 (07:00→21:00)
[2016-11-24] MEDS: SERTRALINE 50 MG (ZOLOFT) TABLET PO SCH (08:25)
[2016-11-24] MEDS: lisINopril 5 MG (PRINIVIL) TABLET PO SCH (08:25)
[2016-11-24] MEDS: LIDOCAINE (LIDODERM) 5% PATCH TOP SCH (08:25)
[2016-11-24] MEDS: HYDROcodone/APAP 10 MG/325 MG (NORCO) TAB PO SCH ×2 (08:25→20:43)
[2016-11-24] MEDS: CALCIUM CARBONATE 500 MG + VITAMIN D 200 IU TABLET PO SCH (08:25)
[2016-11-24] MEDS: DIGOXIN 0.125 MG (LANOXIN) TAB PO SCH (08:25)
[2016-11-24] MEDS: DOCUSATE SODIUM 100 MG (COLACE) CAP PO PRN (08:29)
--- NOTE | 2016-11-24 13:23 | Progress Note (E) ---
Progress Note SUBJECTIVE Overnight, no major issues. Endoscopy showed duodenal ulcers. Hgb 11/23 8.9. She did not require transfusion. Remains on pantoprazole, sucralfate. Cr was up to 1.54 yesterday. Furosemide on hold. RFP pending. OBJECTIVE Vital Signs Date Time Temp Pulse Resp B/P Pulse Ox O2 Delivery O2 Flow Rate FiO2 11/24/16 11:28 97.0 84 18 125/60 99 Room air I & O 11/23/16 11/24/16 Cumulative From/Thru 19:00 07:00 11/17/16 07:58 - 11/24/16 06:10 Intake Total 1163 ml 496 ml 67077 ml Output Total 500 ml 1550 ml 96404 ml Balance 663 ml -1054 ml -5098 ml GEN: Resting in chair. Alert, interative. NAD. HEENT: EOMI, clear sclerae, mildly dry oral mucosa. CV: Regular at present with systolic flow murmur at LSB. PULM: CTA B with no R/R/W. ABD: Soft, NT/ND with normal bowel sounds. EXTR: Warm, dry, well-perfused. Only trace ankle edema. INTEG: Pallor. Age related changes. No rash. NEURO: No focal motor neuro deficit. Lab-Past 14 Days, 35 Results 11/17/16 08:33: Alanine Aminotransferase (ALT/SGPT) 23L, Albumin 3.5, Albumin/Globulin Ratio 1.346, Alkaline Phosphatase 72, Anion Gap 15.9H, Aspartate Amino Transf (AST/ SGOT) 17, BUN/Creatinine Ratio 46H, Basophils # (Auto) 0.0, Basophils (%) (Auto ) 0, Blood Urea Nitrogen 49#H, Calcium Level 8.8, Calcium/Ionized Calcium Ratio 4.2, Calculated Osmolality 285, Carbon Dioxide Level 24, Chloride Level 102, Creatinine 1.07, Digoxin Level 0.50L, Eosinophils # (Auto) 0.1, Eosinophils (%) (Auto) 1, Estimat Glomerular Filtration Rate 59.6, Estimated GFR (Non- 49.2, Glucose Level 212#H, Hematocrit 33.70L, Hemoglobin 10.8L, Lymphocytes # (Auto) 1.5, Lymphocytes (%) (Auto) 9L, Mean Corpuscular Hemoglobin 27.8, Mean Corpuscular Hemoglobin Concent 32.0, Mean Corpuscular Volume 87, Mean Platelet Volume 10.5H, Monocytes # (Auto) 1.2, Monocytes (%) ( Auto) 7, Neutrophils # (Auto) 13.3, Neutrophils (%) (Auto) 82H, Platelet Count 277, Potassium Level 4.7#, Prothromb Time International Ratio 3.4H, Prothrombin Time 37.1H, Red Blood Count 3.89L, Red Cell Distribution Width 15.0, Sodium Level 138, Total Bilirubin 0.6, Total Protein 6.1L, White Blood Count 16.27H 11/17/16 13:57: Hematocrit 29.10L, Hemoglobin 9.3L 11/17/16 22:04: Hemoglobin 9.0L 11/18/16 02:50: Urine Bacteria Rare, Urine Bilirubin Negative, Urine Clarity Clear, Urine Collection Type Clean catch, Urine Color Yellow, Urine Glucose (UA) Negative, Urine Ketones Negative, Urine Leukocyte Esterase Negative, Urine Nitrite Negative, Urine Protein Negative, Urine RBC 10-20H, Urine RBC (Auto) 3+H, Urine Specific Christine 1.010, Urine Squamous Epithelial Cells 10-20, Urine Urobilinogen 0.2, Urine WBC 0-2, Urine pH 6.5, Volume Urine Centrifuged 12 ml 11/18/16 06:10: Alanine Aminotransferase (ALT/SGPT) 28L, Albumin 3.2L, Albumin/Globulin Ratio 1.280, Alkaline Phosphatase 67, Anion Gap 12.2, Aspartate Amino Transf (AST/SGOT ) 16, BUN/Creatinine Ratio 31H, Basophils # (Auto) 0.0, Basophils (%) (Auto) 0, Blood Urea Nitrogen 29H, Calcium Level 8.8, Calcium/Ionized Calcium Ratio 4.4, Calculated Osmolality 275L, Carbon Dioxide Level 23, Chloride Level 107, Creatinine 0.94, Eosinophils # (Auto) 0.1, Eosinophils (%) (Auto) 1, Estimat Glomerular Filtration Rate 69.2, Estimated GFR (Non- 57.2, Glucose Level 131#H, Hematocrit 27.20L, Hemoglobin 8.8L, Lymphocytes # (Auto) 2.2, Lymphocytes (%) (Auto) 17L, Mean Corpuscular Hemoglobin 27.5, Mean Corpuscular Hemoglobin Concent 32.4, Mean Corpuscular Volume 85, Mean Platelet Volume 10.7H, Monocytes # (Auto) 1.1, Monocytes (%) (Auto) 8, Neutrophils # ( Auto) 9.4, Neutrophils (%) (Auto) 73H, Platelet Count 247, Potassium Level 4.4, Prothromb Time International Ratio 2.6H, Prothrombin Time 29.2H, Red Blood Count 3.20L, Red Cell Distribution Width 15.4, Smear Scan , Sodium Level 138, Total Bilirubin 0.7, Total Protein 5.7L, White Blood Count 12.87H 11/18/16 13:22: Hemoglobin 8.7L 11/19/16 05:26: Alanine Aminotransferase (ALT/SGPT) 21L, Albumin 3.0L, Albumin/Globulin Ratio 1.304, Alkaline Phosphatase 66, Anion Gap 11.7, Aspartate Amino Transf (AST/SGOT ) 18, BUN/Creatinine Ratio 21H, Basophils # (Auto) 0.0, Basophils (%) (Auto) 0, Blood Urea Nitrogen 24H, Calcium Level 8.9, Calcium/Ionized Calcium Ratio 4.6, Calculated Osmolality 273L, Carbon Dioxide Level 29, Chloride Level 102, Creatinine 1.14, Eosinophils # (Auto) 0.2, Eosinophils (%) (Auto) 1, Estimat Glomerular Filtration Rate 55.4, Estimated GFR (Non- 45.8, Glucose Level 139H, Hematocrit 26.50L, Hemoglobin 8.4L, Lymphocytes # (Auto) 1.8 , Lymphocytes (%) (Auto) 17L, Mean Corpuscular Hemoglobin 27.2, Mean Corpuscular Hemoglobin Concent 31.7, Mean Corpuscular Volume 86, Mean Platelet Volume 10.7H, Monocytes # (Auto) 1.0, Monocytes (%) (Auto) 9, Neutrophils # ( Auto) 7.8, Neutrophils (%) (Auto) 72H, Platelet Count 233, Potassium Level 4.6, Prothromb Time International Ratio 2.7H, Prothrombin Time 30.4H, Red Blood Count 3.09L, Red Cell Distribution Width 15.6, Smear Scan Yes, Sodium Level 138 , Total Bilirubin 0.6, Total Protein 5.3L, White Blood Count 10.90, C-Reactive Protein 0.60, Troponin I < 0.012 11/19/16 12:05: Hematocrit 27.20L, Hemoglobin 8.7L, Troponin I < 0.012, Lactic Acid Level 1.4 11/19/16 18:00: Hematocrit 29.80L, Hemoglobin 9.7L 11/20/16 05:29: Hematocrit 27.80L, Hemoglobin 9.1L, Albumin 3.5, Anion Gap 13.3, Basophils # ( Auto) 0.0, Basophils (%) (Auto) 0, Blood Urea Nitrogen 22H, Calcium Level 9.2, Carbon Dioxide Level 30H, Chloride Level 98, Creatinine 1.12, Eosinophils # ( Auto) 0.1, Eosinophils (%) (Auto) 1, Estimat Glomerular Filtration Rate 56.5, Estimated GFR (Non- 46.7, Glucose Level 142H, Lymphocytes # ( Auto) 1.8, Lymphocytes (%) (Auto) 15L, Mean Corpuscular Hemoglobin 27.7, Mean Corpuscular Hemoglobin Concent 32.7, Mean Corpuscular Volume 85, Mean Platelet Volume 10.6H, Monocytes # (Auto) 1.1, Monocytes (%) (Auto) 9, Neutrophils # ( Auto) 8.6, Neutrophils (%) (Auto) 74H, Phosphorus Level 4.5, Platelet Count 265 , Potassium Level 4.2, Prothromb Time International Ratio 2.1H, Prothrombin Time 23.8H, Red Blood Count 3.28L, Red Cell Distribution Width 15.1, Sodium Level 137, White Blood Count 11.63H 11/21/16 05:35: Hematocrit 27.30L, Hemoglobin 8.9L, Albumin 3.3L, Anion Gap 11.4, Basophils # ( Auto) 0.0, Basophils (%) (Auto) 0, Blood Urea Nitrogen 24H, Calcium Level 9.1, Carbon Dioxide Level 29, Chloride Level 99, Creatinine 0.94, Eosinophils # (Auto ) 0.2, Eosinophils (%) (Auto) 2, Estimat Glomerular Filtration Rate 69.2, Estimated GFR (Non- 57.2, Glucose Level 136H, Lymphocytes # ( Auto) 1.9, Lymphocytes (%) (Auto) 16L, Mean Corpuscular Hemoglobin 27.8, Mean Corpuscular Hemoglobin Concent 32.6, Mean Corpuscular Volume 85, Mean Platelet Volume 10.7H, Monocytes # (Auto) 1.1, Monocytes (%) (Auto) 9, Neutrophils # ( Auto) 8.6, Neutrophils (%) (Auto) 72H, Phosphorus Level 4.0, Platelet Count 285 , Potassium Level 3.8, Prothromb Time International Ratio 1.3, Prothrombin Time 14.6H, Red Blood Count 3.20L, Red Cell Distribution Width 15.6, Sodium Level 136 , White Blood Count 11.84H 11/21/16 11:35: Urine Bilirubin Negative, Urine Clarity Clear, Urine Collection Type Catheter, Urine Color Yellow, Urine Glucose (UA) Negative, Urine Ketones Negative, Urine Leukocyte Esterase Negative, Urine Nitrite Negative, Urine Protein Negative, Urine RBC (Auto) Negative, Urine Specific Christine 1.010, Urine Urobilinogen 0.2 , Urine pH 5.5 11/22/16 06:00: Albumin 3.9, Anion Gap 17.5H, Basophils # (Auto) 0.0, Basophils (%) (Auto) 0, Blood Urea Nitrogen 23H, Calcium Level 9.3, Carbon Dioxide Level 25, Chloride Level 97L, Creatinine 1.06, Eosinophils # (Auto) 0.2, Eosinophils (%) (Auto) 1, Estimat Glomerular Filtration Rate 60.2, Estimated GFR (Non- 49.8, Glucose Level 183#H, Hematocrit 30.60L, Hemoglobin 9.9L, Lymphocytes # ( Auto) 1.9, Lymphocytes (%) (Auto) 16L, Magnesium Level 1.8, Mean Corpuscular Hemoglobin 27.7, Mean Corpuscular Hemoglobin Concent 32.4, Mean Corpuscular Volume 86, Mean Platelet Volume 10.7H, Monocytes # (Auto) 1.4, Monocytes (%) ( Auto) 12H, Neutrophils # (Auto) 8.3, Neutrophils (%) (Auto) 71H, Phosphorus Level 4.9#, Platelet Count 355, Potassium Level 3.4L, Red Blood Count 3.58L, Red Cell Distribution Width 15.8H, Sodium Level 136, White Blood Count 11.82H 11/23/16 05:25: Albumin 3.4, Anion Gap 13.6, Basophils # (Auto) 0.0, Basophils (%) (Auto) 0, Blood Urea Nitrogen 31H, Calcium Level 9.2, Carbon Dioxide Level 26, Chloride Level 96L, Creatinine 1.31H, Eosinophils # (Auto) 0.2, Eosinophils (%) (Auto) 1 , Estimat Glomerular Filtration Rate 47.2, Estimated GFR (Non- 39.0, Glucose Level 159H, Hematocrit 28.00L, Hemoglobin 8.9L, Lymphocytes # ( Auto) 1.8, Lymphocytes (%) (Auto) 15L, Magnesium Level 2.0, Mean Corpuscular Hemoglobin 27.0, Mean Corpuscular Hemoglobin Concent 31.8, Mean Corpuscular Volume 85, Mean Platelet Volume 10.8H, Monocytes # (Auto) 1.2, Monocytes (%) ( Auto) 10, Neutrophils # (Auto) 8.8, Neutrophils (%) (Auto) 73H, Phosphorus Level 4.2, Platelet Count 322, Potassium Level 4.0, Red Blood Count 3.30L, Red Cell Distribution Width 15.7H, Sodium Level 131L, White Blood Count 12.13H 11/23/16 14:12: Anion Gap 16.6H, Blood Urea Nitrogen 33H, Calcium Level 9.2, Carbon Dioxide Level 24, Chloride Level 94L, Creatinine 1.54H, Estimat Glomerular Filtration Rate 39.1, Estimated GFR (Non- 32.3, Glucose Level 214#H, Potassium Level 4.3, Sodium Level 131L, BUN/Creatinine Ratio 21H 11/24/16 01:00: Urine Random Creatinine 33, Urine Random Sodium 33, Urine Random Urea 351 PROCEDURES 11/21/16 EGD: FINDINGS: There was an ulcer seen in the duodenal bulb oriented along its medial aspect. There was no active bleeding and no blood seen in the stomach or duodenum. Biopsies were obtained from the gastric antrum for JEANNETTE and histology. The stomach and esophagus appeared normal with no erythema, inflammation, neoplasia or ulceration. PATHOLOGY 11/21/16 ANTRUM Biopsy: 1. JEANNETTE test for H pylori: Negative. 2. Gastric mucosa (antrum biopsy): Chronic superficial gastritis. IMAGING 11/19/16 ACUTE ABD SERIES INDICATION: Abdominal pain. TECHNIQUE: Supine and upright views of the abdomen were obtained with a single view of the chest. FINDINGS: The lungs appear clear. There are surgical clips seen in the left axilla. There is anterior/inferior dislocation of the right humeral head. There is no evidence of free intraperitoneal gas or pneumatosis. The overall bowel gas pattern is unremarkable. There is diffuse spondylosis and degenerative change in the hips. IMPRESSION: No acute abdominal abnormality is identified. Note is made of inferior dislocation of the right shoulder. ASSESSMENT Renata Powell is a 81 year old female admitted 11/17 with rectal bleeding that awoke her from sleep. She was mildly coagulopathic on admit with INR 3.4. She had some RUQ abdominal pain of uncertain significance. With concern of upper GI bleed based on labs, she had EGD 11/21 which did show duodenal ulcer. Pathology reassuring. She improved with therapies as outlined but had mild TYSON and orthostasis. PLAN * Upper GI Bleed: Resolving. Due to duodenal ulcer. S/P EGD 11/21 with results as noted. Mild coagulopathy due to warfarin contributed. Warfarin held. Pantoprazole drip stopped 11/19. Monitored Hgb trend. * Peptic Ulcer Disease, Duodenal Ulcer: Pathology reassuring. Pantoprazole, sucralfate. * Acute Blood Loss Anemia: Hgb norma 8.4 11/19. Transfuse for Hgb < 8 or precipitous drop. Has not been transfused thus far. * Coagulopathy due to Warfarin: Did not receive vitamin K on admit. Warfarin on hold. Gave vitamin K 11/20 in anticipation of EGD. Warfarin on hold x 2 weeks. * Abdominal Pain: Resolved. Acute abdominal series unremarkable. Cubero. * TYSON on CKD: Creatinine had been normal this admission but did rise to peak 1.54. Multifactorial. Got IVF. Monitor Cr trend. * F/E/N: Surgical soft. Peripheral IV. D/C torres 11/24. * Prophylaxis: SCDs, DAVID elliott. * Code Status: DNR * Dispo: Inpatient. Planning discharge 11/25. She is now more agreeable to skilled care. Discharge now planned 11/26. CHRONIC ISSUES * CAD: Not on aspirin. Check troponin trend. * Constipation: Bowel regimen * HLD: Simvastatin * HTN: Lisinopril * Atrial fibrillation: Warfarin on hold due to GI bleed. Digoxin. * Diabetes Mellitus Type II: Basal/bolus, sliding scale. * Depression: Sertraline * Edema? Furosemide on hold due to TYSON. * Chronic Diastolic CHF, Severe MR: Stable. Reviewed prior echo, and from prior admission: Moderate to Severe MR on echo, had her follow-up with Dr. García. 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 Observe. CRIS ALICIA MD Nov 24, 2016 13:23
--- NOTE | 2016-11-24 13:44 | NUR ---
Aguilar discontinued at this time per order. Pt tolerates well.
[2016-11-24 13:56] LABS: ALBUMIN 3.8 g/dL (3.4-5.0); ANION GAP 17.6 MEQ/L (3-15)
--- NOTE | 2016-11-24 18:22 | NUR ---
Pt denies complaints. Up to chair throughout the day. Has visitors. SL intact. Resp even and non labored on RA. Ambulates to [facility] as needed.
[2016-11-24] MEDS: LIDOCAINE PATCH REMOVAL TOP SCH (20:43)
[2016-11-24] MEDS: SIMvastatin 20 MG (ZOCOR) TAB PO SCH (20:43)
[2016-11-24] MEDS: INSULIN GLARGINE 1 UNIT/0.01ML (LANTUS) DOSE SC SCH (21:52)
[2016-11-25] VITALS (7 sets, daily range): BP systolic 100–157; BP diastolic 56–87
[2016-11-25] MEDS: SUCRALFATE 1 GM (CARAFATE) TAB PO SCH ×4 (06:36→21:13)
[2016-11-25] MEDS: PANTOPRAZOLE 20 MG (PROTONIX) TABLET PO SCH ×2 (06:36→17:44)
--- NOTE | 2016-11-25 06:48 | NUR ---
Patient rests in bed throughout night without needs. Up to bathroom several times with standby assistance. No needs at this time.
[2016-11-25 06:53] LABS: ALBUMIN 3.4 g/dL (3.4-5.0); PHOSPHORUS 3.5 mg/dL (2.4-4.9)
[2016-11-25] MEDS: INSULIN LISPRO 1 UNIT/0.01 ML (HUMALOG) DOSE SC SCH ×6 (07:01→21:00)
--- NOTE | 2016-11-25 07:05 | NUR ---
Report received from Margareth LEAVITT and care assumed.
--- NOTE | 2016-11-25 07:05 | NUR ---
Report received from Maco LEAVITT and care assumed. Pt resting in bed with eyes closed.
--- NOTE | 2016-11-25 07:35 | NUR ---
Assessments completed and pt up to chair at bedside for breakfast.
--- NOTE | 2016-11-25 08:00 | NUR ---
Assessments completed and pt being helped up to chair. Pt ambulated to toilet. Pt returned to chair to eat breakfast in chair.
[2016-11-25] MEDS: CALCIUM CARBONATE 500 MG + VITAMIN D 200 IU TABLET PO SCH (08:28)
[2016-11-25] MEDS: HYDROcodone/APAP 10 MG/325 MG (NORCO) TAB PO SCH ×2 (08:28→21:13)
[2016-11-25] MEDS: lisINopril 5 MG (PRINIVIL) TABLET PO SCH (08:29)
[2016-11-25] MEDS: SERTRALINE 50 MG (ZOLOFT) TABLET PO SCH (08:29)
[2016-11-25] MEDS: LIDOCAINE (LIDODERM) 5% PATCH TOP SCH (08:29)
--- NOTE | 2016-11-25 08:45 | NUR ---
Pt took am pills without difficulty and requested Colace. Colace tabs 2 given per rquest.
[2016-11-25] MEDS: DOCUSATE SODIUM 100 MG (COLACE) CAP PO PRN (08:50)
--- NOTE | 2016-11-25 11:12 | Progress Note (E) ---
Progress Note SUBJECTIVE No issues reported overnight. Chemistry stable... Na still mildly low. Cr improved to 1.05. Planning transfer to [place] tomorrow with skilled care. OBJECTIVE Vital Signs Date Time Temp Pulse Resp B/P Pulse Ox O2 Delivery O2 Flow Rate FiO2 11/25/16 08:00 98 134/70 101 133/65 102 100/87 11/25/16 08:00 97.8 18 99 Room air I & O 11/24/16 11/25/16 Cumulative From/Thru 19:00 07:00 11/17/16 07:58 - 11/25/16 06:11 Intake Total 660 ml 691 ml 97705 ml Output Total 400 ml 100 ml 04467 ml Balance 260 ml 591 ml -4247 ml GEN: Resting in bed. Alert, interative. NAD. HEENT: EOMI, clear sclerae, mildly dry oral mucosa. CV: Regular at present with systolic flow murmur at LSB. PULM: CTA B with no R/R/W. ABD: Soft, NT/ND with normal bowel sounds. EXTR: Warm, dry, well-perfused. Only trace ankle edema. INTEG: Pallor. Age related changes. No rash. NEURO: No focal motor neuro deficit. Lab-Past 14 Days, 35 Results 11/17/16 08:33: Alanine Aminotransferase (ALT/SGPT) 23L, Albumin 3.5, Albumin/Globulin Ratio 1.346, Alkaline Phosphatase 72, Anion Gap 15.9H, Aspartate Amino Transf (AST/ SGOT) 17, BUN/Creatinine Ratio 46H, Basophils # (Auto) 0.0, Basophils (%) (Auto ) 0, Blood Urea Nitrogen 49#H, Calcium Level 8.8, Calcium/Ionized Calcium Ratio 4.2, Calculated Osmolality 285, Carbon Dioxide Level 24, Chloride Level 102, Creatinine 1.07, Digoxin Level 0.50L, Eosinophils # (Auto) 0.1, Eosinophils (%) (Auto) 1, Estimat Glomerular Filtration Rate 59.6, Estimated GFR (Non- 49.2, Glucose Level 212#H, Hematocrit 33.70L, Hemoglobin 10.8L, Lymphocytes # (Auto) 1.5, Lymphocytes (%) (Auto) 9L, Mean Corpuscular Hemoglobin 27.8, Mean Corpuscular Hemoglobin Concent 32.0, Mean Corpuscular Volume 87, Mean Platelet Volume 10.5H, Monocytes # (Auto) 1.2, Monocytes (%) ( Auto) 7, Neutrophils # (Auto) 13.3, Neutrophils (%) (Auto) 82H, Platelet Count 277, Potassium Level 4.7#, Prothromb Time International Ratio 3.4H, Prothrombin Time 37.1H, Red Blood Count 3.89L, Red Cell Distribution Width 15.0, Sodium Level 138, Total Bilirubin 0.6, Total Protein 6.1L, White Blood Count 16.27H 11/17/16 13:57: Hematocrit 29.10L, Hemoglobin 9.3L 11/17/16 22:04: Hemoglobin 9.0L 11/18/16 02:50: Urine Bacteria Rare, Urine Bilirubin Negative, Urine Clarity Clear, Urine Collection Type Clean catch, Urine Color Yellow, Urine Glucose (UA) Negative, Urine Ketones Negative, Urine Leukocyte Esterase Negative, Urine Nitrite Negative, Urine Protein Negative, Urine RBC 10-20H, Urine RBC (Auto) 3+H, Urine Specific [place] 1.010, Urine Squamous Epithelial Cells 10-20, Urine Urobilinogen 0.2, Urine WBC 0-2, Urine pH 6.5, Volume Urine Centrifuged 12 ml 11/18/16 06:10: Alanine Aminotransferase (ALT/SGPT) 28L, Albumin 3.2L, Albumin/Globulin Ratio 1.280, Alkaline Phosphatase 67, Anion Gap 12.2, Aspartate Amino Transf (AST/SGOT ) 16, BUN/Creatinine Ratio 31H, Basophils # (Auto) 0.0, Basophils (%) (Auto) 0, Blood Urea Nitrogen 29H, Calcium Level 8.8, Calcium/Ionized Calcium Ratio 4.4, Calculated Osmolality 275L, Carbon Dioxide Level 23, Chloride Level 107, Creatinine 0.94, Eosinophils # (Auto) 0.1, Eosinophils (%) (Auto) 1, Estimat Glomerular Filtration Rate 69.2, Estimated GFR (Non- 57.2, Glucose Level 131#H, Hematocrit 27.20L, Hemoglobin 8.8L, Lymphocytes # (Auto) 2.2, Lymphocytes (%) (Auto) 17L, Mean Corpuscular Hemoglobin 27.5, Mean Corpuscular Hemoglobin Concent 32.4, Mean Corpuscular Volume 85, Mean Platelet Volume 10.7H, Monocytes # (Auto) 1.1, Monocytes (%) (Auto) 8, Neutrophils # ( Auto) 9.4, Neutrophils (%) (Auto) 73H, Platelet Count 247, Potassium Level 4.4, Prothromb Time International Ratio 2.6H, Prothrombin Time 29.2H, Red Blood Count 3.20L, Red Cell Distribution Width 15.4, Smear Scan , Sodium Level 138, Total Bilirubin 0.7, Total Protein 5.7L, White Blood Count 12.87H 11/18/16 13:22: Hemoglobin 8.7L 11/19/16 05:26: Alanine Aminotransferase (ALT/SGPT) 21L, Albumin 3.0L, Albumin/Globulin Ratio 1.304, Alkaline Phosphatase 66, Anion Gap 11.7, Aspartate Amino Transf (AST/SGOT ) 18, BUN/Creatinine Ratio 21H, Basophils # (Auto) 0.0, Basophils (%) (Auto) 0, Blood Urea Nitrogen 24H, Calcium Level 8.9, Calcium/Ionized Calcium Ratio 4.6, Calculated Osmolality 273L, Carbon Dioxide Level 29, Chloride Level 102, Creatinine 1.14, Eosinophils # (Auto) 0.2, Eosinophils (%) (Auto) 1, Estimat Glomerular Filtration Rate 55.4, Estimated GFR (Non- 45.8, Glucose Level 139H, Hematocrit 26.50L, Hemoglobin 8.4L, Lymphocytes # (Auto) 1.8 , Lymphocytes (%) (Auto) 17L, Mean Corpuscular Hemoglobin 27.2, Mean Corpuscular Hemoglobin Concent 31.7, Mean Corpuscular Volume 86, Mean Platelet Volume 10.7H, Monocytes # (Auto) 1.0, Monocytes (%) (Auto) 9, Neutrophils # ( Auto) 7.8, Neutrophils (%) (Auto) 72H, Platelet Count 233, Potassium Level 4.6, Prothromb Time International Ratio 2.7H, Prothrombin Time 30.4H, Red Blood Count 3.09L, Red Cell Distribution Width 15.6, Smear Scan Yes, Sodium Level 138 , Total Bilirubin 0.6, Total Protein 5.3L, White Blood Count 10.90, C-Reactive Protein 0.60, Troponin I < 0.012 11/19/16 12:05: Hematocrit 27.20L, Hemoglobin 8.7L, Troponin I < 0.012, Lactic Acid Level 1.4 11/19/16 18:00: Hematocrit 29.80L, Hemoglobin 9.7L 11/20/16 05:29: Hematocrit 27.80L, Hemoglobin 9.1L, Albumin 3.5, Anion Gap 13.3, Basophils # ( Auto) 0.0, Basophils (%) (Auto) 0, Blood Urea Nitrogen 22H, Calcium Level 9.2, Carbon Dioxide Level 30H, Chloride Level 98, Creatinine 1.12, Eosinophils # ( Auto) 0.1, Eosinophils (%) (Auto) 1, Estimat Glomerular Filtration Rate 56.5, Estimated GFR (Non- 46.7, Glucose Level 142H, Lymphocytes # ( Auto) 1.8, Lymphocytes (%) (Auto) 15L, Mean Corpuscular Hemoglobin 27.7, Mean Corpuscular Hemoglobin Concent 32.7, Mean Corpuscular Volume 85, Mean Platelet Volume 10.6H, Monocytes # (Auto) 1.1, Monocytes (%) (Auto) 9, Neutrophils # ( Auto) 8.6, Neutrophils (%) (Auto) 74H, Phosphorus Level 4.5, Platelet Count 265 , Potassium Level 4.2, Prothromb Time International Ratio 2.1H, Prothrombin Time 23.8H, Red Blood Count 3.28L, Red Cell Distribution Width 15.1, Sodium Level 137, White Blood Count 11.63H 11/21/16 05:35: Hematocrit 27.30L, Hemoglobin 8.9L, Albumin 3.3L, Anion Gap 11.4, Basophils # ( Auto) 0.0, Basophils (%) (Auto) 0, Blood Urea Nitrogen 24H, Calcium Level 9.1, Carbon Dioxide Level 29, Chloride Level 99, Creatinine 0.94, Eosinophils # (Auto ) 0.2, Eosinophils (%) (Auto) 2, Estimat Glomerular Filtration Rate 69.2, Estimated GFR (Non- 57.2, Glucose Level 136H, Lymphocytes # ( Auto) 1.9, Lymphocytes (%) (Auto) 16L, Mean Corpuscular Hemoglobin 27.8, Mean Corpuscular Hemoglobin Concent 32.6, Mean Corpuscular Volume 85, Mean Platelet Volume 10.7H, Monocytes # (Auto) 1.1, Monocytes (%) (Auto) 9, Neutrophils # ( Auto) 8.6, Neutrophils (%) (Auto) 72H, Phosphorus Level 4.0, Platelet Count 285 , Potassium Level 3.8, Prothromb Time International Ratio 1.3, Prothrombin Time 14.6H, Red Blood Count 3.20L, Red Cell Distribution Width 15.6, Sodium Level 136 , White Blood Count 11.84H 11/21/16 11:35: Urine Bilirubin Negative, Urine Clarity Clear, Urine Collection Type Catheter, Urine Color Yellow, Urine Glucose (UA) Negative, Urine Ketones Negative, Urine Leukocyte Esterase Negative, Urine Nitrite Negative, Urine Protein Negative, Urine RBC (Auto) Negative, Urine Specific [place] 1.010, Urine Urobilinogen 0.2 , Urine pH 5.5 11/22/16 06:00: Albumin 3.9, Anion Gap 17.5H, Basophils # (Auto) 0.0, Basophils (%) (Auto) 0, Blood Urea Nitrogen 23H, Calcium Level 9.3, Carbon Dioxide Level 25, Chloride Level 97L, Creatinine 1.06, Eosinophils # (Auto) 0.2, Eosinophils (%) (Auto) 1, Estimat Glomerular Filtration Rate 60.2, Estimated GFR (Non- 49.8, Glucose Level 183#H, Hematocrit 30.60L, Hemoglobin 9.9L, Lymphocytes # ( Auto) 1.9, Lymphocytes (%) (Auto) 16L, Magnesium Level 1.8, Mean Corpuscular Hemoglobin 27.7, Mean Corpuscular Hemoglobin Concent 32.4, Mean Corpuscular Volume 86, Mean Platelet Volume 10.7H, Monocytes # (Auto) 1.4, Monocytes (%) ( Auto) 12H, Neutrophils # (Auto) 8.3, Neutrophils (%) (Auto) 71H, Phosphorus Level 4.9#, Platelet Count 355, Potassium Level 3.4L, Red Blood Count 3.58L, Red Cell Distribution Width 15.8H, Sodium Level 136, White Blood Count 11.82H 11/23/16 05:25: Albumin 3.4, Anion Gap 13.6, Basophils # (Auto) 0.0, Basophils (%) (Auto) 0, Blood Urea Nitrogen 31H, Calcium Level 9.2, Carbon Dioxide Level 26, Chloride Level 96L, Creatinine 1.31H, Eosinophils # (Auto) 0.2, Eosinophils (%) (Auto) 1 , Estimat Glomerular Filtration Rate 47.2, Estimated GFR (Non- 39.0, Glucose Level 159H, Hematocrit 28.00L, Hemoglobin 8.9L, Lymphocytes # ( Auto) 1.8, Lymphocytes (%) (Auto) 15L, Magnesium Level 2.0, Mean Corpuscular Hemoglobin 27.0, Mean Corpuscular Hemoglobin Concent 31.8, Mean Corpuscular Volume 85, Mean Platelet Volume 10.8H, Monocytes # (Auto) 1.2, Monocytes (%) ( Auto) 10, Neutrophils # (Auto) 8.8, Neutrophils (%) (Auto) 73H, Phosphorus Level 4.2, Platelet Count 322, Potassium Level 4.0, Red Blood Count 3.30L, Red Cell Distribution Width 15.7H, Sodium Level 131L, White Blood Count 12.13H 11/23/16 14:12: Anion Gap 16.6H, Blood Urea Nitrogen 33H, Calcium Level 9.2, Carbon Dioxide Level 24, Chloride Level 94L, Creatinine 1.54H, Estimat Glomerular Filtration Rate 39.1, Estimated GFR (Non- 32.3, Glucose Level 214#H, Potassium Level 4.3, Sodium Level 131L, BUN/Creatinine Ratio 21H 11/24/16 01:00: Urine Random Creatinine 33, Urine Random Sodium 33, Urine Random Urea 351 11/24/16 13:40: Albumin 3.8, Anion Gap 17.6H, Blood Urea Nitrogen 32H, Calcium Level 9.3, Carbon Dioxide Level 22, Chloride Level 99, Creatinine 1.08, Estimat Glomerular Filtration Rate 58.9, Estimated GFR (Non- 48.7, Glucose Level 186H, Phosphorus Level 4.0, Potassium Level 5.6#H, Sodium Level 133L 11/25/16 05:35: Albumin 3.4, Anion Gap 10.0, Blood Urea Nitrogen 25H, Calcium Level 8.9, Carbon Dioxide Level 28, Chloride Level 97L, Creatinine 1.05, Estimat Glomerular Filtration Rate 60.9, Estimated GFR (Non- 50.3, Glucose Level 129#H, Phosphorus Level 3.5, Potassium Level 4.5, Sodium Level 131L PROCEDURES 11/21/16 EGD: FINDINGS: There was an ulcer seen in the duodenal bulb oriented along its medial aspect. There was no active bleeding and no blood seen in the stomach or duodenum. Biopsies were obtained from the gastric antrum for JEANNETTE and histology. The stomach and esophagus appeared normal with no erythema, inflammation, neoplasia or ulceration. PATHOLOGY 11/21/16 ANTRUM Biopsy: 1. JEANNETTE test for H pylori: Negative. 2. Gastric mucosa (antrum biopsy): Chronic superficial gastritis. IMAGING 11/19/16 ACUTE ABD SERIES INDICATION: Abdominal pain. TECHNIQUE: Supine and upright views of the abdomen were obtained with a single view of the chest. FINDINGS: The lungs appear clear. There are surgical clips seen in the left axilla. There is anterior/inferior dislocation of the right humeral head. There is no evidence of free intraperitoneal gas or pneumatosis. The overall bowel gas pattern is unremarkable. There is diffuse spondylosis and degenerative change in the hips. IMPRESSION: No acute abdominal abnormality is identified. Note is made of inferior dislocation of the right shoulder. ASSESSMENT Renata Powell is a 81 year old female admitted 11/17 with rectal bleeding that awoke her from sleep. She was mildly coagulopathic on admit with INR 3.4. She had some RUQ abdominal pain of uncertain significance. With concern of upper GI bleed based on labs, she had EGD 11/21 which did show duodenal ulcer. Pathology reassuring. She improved with therapies as outlined but had mild TYSON and orthostasis. PLAN * Upper GI Bleed: Resolving. Due to duodenal ulcer. S/P EGD 11/21 with results as noted. Mild coagulopathy due to warfarin contributed. Warfarin held. Pantoprazole drip stopped 11/19. Monitored Hgb trend. * Peptic Ulcer Disease, Duodenal Ulcer: Pathology reassuring. Pantoprazole, sucralfate to be continued at discharge. Restart warfarin after 2 weeks. Follow- up with surgery (Dr. Acosta) in 2 weeks. * Acute Blood Loss Anemia: Hgb norma 8.4 11/19. Transfuse for Hgb < 8 or precipitous drop... but has not been transfused thus far. Started iron supplement 11/25. * Coagulopathy due to Warfarin: Did not receive vitamin K on admit. Warfarin on hold. Gave vitamin K 11/20 in anticipation of EGD. Warfarin on hold x 2 weeks. * Abdominal Pain: Resolved. Acute abdominal series unremarkable. [place]. * TYSON on CKD: Creatinine had been normal this admission but did rise to peak 1.54. Multifactorial. Got IVF. Improved to 1.05 11/25. * F/E/N: Surgical soft. Peripheral IV. D/C torres 11/24. * Prophylaxis: SCDs, DAVID hose. * Code Status: DNR * Dispo: Inpatient. Planning discharge 11/26 to [facility]. CHRONIC ISSUES * CAD: Not on aspirin. Check troponin trend. * Constipation: Bowel regimen * HLD: Simvastatin * HTN: Lisinopril * Atrial fibrillation: Warfarin on hold due to GI bleed. Digoxin. * Diabetes Mellitus Type II: Basal/bolus, sliding scale. * Depression: Sertraline * Edema? Furosemide on hold due to TYSON. * Chronic Diastolic CHF, Severe MR: Stable. Reviewed prior echo, and from prior admission: Moderate to Severe MR on echo, had her follow-up with Dr. García. 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 Observe. CRIS ALICIA MD Nov 25, 2016 11:04
[2016-11-25] MEDS: FERROUS SULFATE 325 MG (IRON) TABLET PO SCH ×2 (13:04→17:44)
--- NOTE | 2016-11-25 18:50 | NUR ---
Report received, care assumed.
--- NOTE | 2016-11-25 19:15 | NUR ---
Pt resting with eyes closed, appears to be sleeping. No signs discomfort. No needs at this time.
[2016-11-25] MEDS: SIMvastatin 20 MG (ZOCOR) TAB PO SCH (21:13)
[2016-11-25] MEDS: INSULIN GLARGINE 1 UNIT/0.01ML (LANTUS) DOSE SC SCH (21:14)
--- NOTE | 2016-11-25 21:19 | NUR ---
Pt took evening medications without difficulty. Lidocaine patch removed. Pt rates discomfort at 4/10. [place] 10 included in evening meds. Assisted pt back in bed, had been up to BSC. No other needs. Call light in reach, side rails up times two, bed alarm on, H2O and personal items in reach.
[2016-11-25] MEDS: LIDOCAINE PATCH REMOVAL TOP SCH (21:42)
--- NOTE | 2016-11-25 23:55 | NUR ---
Pt resting with eyes closed, respirations even et unlabored. Appears alex sleeping. No signs discomfort. No needs at this time. Call light in reach, side rails up times two, bed alarm on.
[2016-11-26 00:14] VITALS: BP 130/59
[2016-11-26 04:25] VITALS: BP 133/76
--- NOTE | 2016-11-26 06:10 | NUR ---
Pt continues to rest quietly in bed. No c/o discomfort this shift. No needs at this time. Call light in reach, bed alarm on.
[2016-11-26] MEDS: INSULIN LISPRO 1 UNIT/0.01 ML (HUMALOG) DOSE SC SCH ×2 (07:30→08:24)
[2016-11-26 08:20] VITALS: BP 115/60
[2016-11-26 08:21] VITALS: BP_SYST 111; BP_SYST 115; BP_SYST 131; BP_DIAS 60; BP_DIAS 66; BP_DIAS 67
[2016-11-26] MEDS: DIGOXIN 0.125 MG (LANOXIN) TAB PO SCH (08:22)
[2016-11-26] MEDS: SUCRALFATE 1 GM (CARAFATE) TAB PO SCH (08:22)
[2016-11-26] MEDS: HYDROcodone/APAP 10 MG/325 MG (NORCO) TAB PO SCH (08:23)
[2016-11-26] MEDS: PANTOPRAZOLE 20 MG (PROTONIX) TABLET PO SCH (08:23)
[2016-11-26] MEDS: lisINopril 5 MG (PRINIVIL) TABLET PO SCH (08:23)
[2016-11-26] MEDS: FERROUS SULFATE 325 MG (IRON) TABLET PO SCH (08:23)
[2016-11-26] MEDS: SERTRALINE 50 MG (ZOLOFT) TABLET PO SCH (08:23)
[2016-11-26] MEDS: LIDOCAINE (LIDODERM) 5% PATCH TOP SCH (08:24)
[2016-11-26] MEDS: CALCIUM CARBONATE 500 MG + VITAMIN D 200 IU TABLET PO SCH (08:25)
[2016-11-26] MEDS: DOCUSATE SODIUM 100 MG (COLACE) CAP PO PRN (08:34)
--- NOTE | 2016-11-26 09:15 | NUR ---
Discussed with Pt. about her discharge back to [facility] today. Pt. reports her daughter in law will be here at 11:00 and will transport her back to the facility. SW contacted [facility] to make them aware of Pt. discharge today back to their facility.
--- NOTE | 2016-11-26 10:00 | Discharge Instructions (E) ---
Discharge Instructions Instructions * You were evaluated for gastrointestinal bleeding. You had an EGD that showed an ulcer of your duodenum. This should improve with medication. You will have follow-up in surgery clinic after discharge. * You had anemia but did not require transfusion. Your blood count should improve with iron supplementation. This was added to your home medications. * Your warfarin is being held because of gastrointestinal bleeding This can be restarted in 2 weeks. * You are being discharged to [facility] and will benefit from some further rehab in skilled care there. Activity Instructions As tolerated. Doctor's Appointment Follow-up with your primary care doctor in 3-5 days. Follow-up with Dr. Acosta in surgery clinic in 2-3 weeks. [facility] staff can call to schedule this appointment to help with coordination and transportation. Discharge Diet: Carbohydrate controlled CRIS ALICIA MD Nov 26, 2016 09:59
[2016-11-26] MEDS ORDERED: FERR325T5 PO (10:11)
[2016-11-26] MEDS ORDERED: INSU100V32 SC (10:11)
[2016-11-26] MEDS ORDERED: DOCU100C8 PO (10:11)
[2016-11-26] MEDS ORDERED: ACHYD1T PO (10:11)
[2016-11-26] MEDS ORDERED: PANT40TA3 PO (10:11)
[2016-11-26] MEDS ORDERED: SCR1T1 PO (10:11)
[2016-11-26] MEDS ORDERED: AC325T PO (10:11)
[2016-11-26] MEDS ORDERED: WARF3TAB6 PO (10:11)
[2016-11-26] MEDS ORDERED: MAGN400O7 PO (10:11)
[2016-11-26] MEDS ORDERED: CALC300T10 PO (10:11)
[2016-11-26] MEDS ORDERED: FURO40TA4 PO (10:11)
[2016-11-26] MEDS ORDERED: POLY17PO2 PO (10:11)
[2016-11-26] MEDS ORDERED: MAG30ORA PO (10:11)
--- NOTE | 2016-11-26 10:36 | Discharge Summary (E) ---
Discharge Summary (E) Admit Date/Time Nov 17, 2016 at 09:27 Discharge Date/Time Nov 26, 2016 Admitting Provider Patricia Quintero MD Primary Care Provider Mitchell Alcazar MD Attending Provider Patricia Quintero MD, Michael MD Consulting Provider ANNA ACOSTA MD Procedures 11/21/2016 EGD: FINDINGS: There was an ulcer seen in the duodenal bulb oriented along its medial aspect. There was no active bleeding and no blood seen in the stomach or duodenum. Biopsies were obtained from the gastric antrum for JEANNETTE and histology. The stomach and esophagus appeared normal with no erythema, inflammation, neoplasia or ulceration. History and Present Illness See History and Physical for complete details. Renata Powell is a 81 year old female admitted 11/17 with rectal bleeding that awoke her from sleep. She was mildly coagulopathic on admit with INR 3.4. She had some RUQ abdominal pain as well. With concern of upper GI bleed based on labs, she had EGD 11/21 which did show duodenal ulcer. Pathology reassuring. She improved with therapies as outlined but had mild TYSON and orthostasis that delayed discharge. This improved with fluids and supportive care as outlined. She was discharged to [facility] where she will benefit from further rehab in skilled care. Hospital Course and Treatment * Upper GI Bleed: Resolving. Due to duodenal ulcer. S/P EGD 11/21 with results as noted. Mild coagulopathy due to warfarin contributed. Warfarin held. Pantoprazole drip stopped 11/19. Monitored Hgb trend. * Peptic Ulcer Disease, Duodenal Ulcer: Pathology reassuring. Pantoprazole, sucralfate to be continued at discharge. Restart warfarin after 2 weeks. Follow- up with surgery (Dr. Acosta) in 2 weeks. * Acute Blood Loss Anemia: Hgb norma 8.4 11/19. Transfuse for Hgb < 8 or precipitous drop... but has not been transfused thus far. Started iron supplement 11/25. * Coagulopathy due to Warfarin: Did not receive vitamin K on admit. Warfarin on hold. Gave vitamin K 11/20 in anticipation of EGD. Warfarin on hold x 2 weeks. * Abdominal Pain: Resolved. Acute abdominal series unremarkable. [place]. * TYSON on CKD: Creatinine had been normal this admission but did rise to peak 1.54. Multifactorial. Got IVF. Improved to 1.05 11/25. * F/E/N: Surgical soft. Peripheral IV. D/C torres 11/24. * Prophylaxis: SCDs, DAVID hose. * Code Status: DNR * Dispo: Inpatient. Planning discharge 11/26 to [facility] care. CHRONIC ISSUES * CAD: Not on aspirin. Observe. * Constipation: Bowel regimen * HLD: Simvastatin * HTN: Lisinopril, metoprolol * Atrial fibrillation: Warfarin on hold due to GI bleed. Restart in 2 weeks. Digoxin. * Diabetes Mellitus Type II: Basal/bolus, sliding scale. * Depression: Sertraline * Edema? Furosemide on hold due to TYSON. Monitor. Compression hose. Furosemide permitted PRN at discharge. * Chronic Diastolic CHF, Severe MR: Stable. Reviewed prior echo, and from prior admission: Moderate to Severe MR on echo, had her follow-up with Dr. García. 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 Noted on CXR this admission. Observe. Discharge Physicial Exam General Vital Signs Date Time Temp Pulse Resp B/P Pulse Ox O2 Delivery O2 Flow Rate FiO2 11/26/16 08:21 83 115/60 98 111/67 105 131/66 11/26/16 08:20 97.6 18 96 Room air Discharge weight: 88 kg GEN: Resting in bed. Alert, interative. NAD. HEENT: EOMI, clear sclerae, mildly dry oral mucosa. CV: Regular at present with systolic flow murmur at LSB. PULM: CTA B with no R/R/W. ABD: Soft, NT/ND with normal bowel sounds. EXTR: Warm, dry, well-perfused. Trace ankle edema. INTEG: Pallor. Age related changes. No rash. NEURO: No focal motor neuro deficit. Laboratory/Radiology Data See summary of pertinent labs in discussion above. Laboratory Results-14 Days 11/17/16 08:33: Alanine Aminotransferase (ALT/SGPT) 23L, Albumin 3.5, Albumin/Globulin Ratio 1.346, Alkaline Phosphatase 72, Anion Gap 15.9H, Aspartate Amino Transf (AST/ SGOT) 17, BUN/Creatinine Ratio 46H, Basophils # (Auto) 0.0, Basophils (%) (Auto ) 0, Blood Urea Nitrogen 49#H, Calcium Level 8.8, Calcium/Ionized Calcium Ratio 4.2, Calculated Osmolality 285, Carbon Dioxide Level 24, Chloride Level 102, Creatinine 1.07, Digoxin Level 0.50L, Eosinophils # (Auto) 0.1, Eosinophils (%) (Auto) 1, Estimat Glomerular Filtration Rate 59.6, Estimated GFR (Non- 49.2, Glucose Level 212#H, Hematocrit 33.70L, Hemoglobin 10.8L, Lymphocytes # (Auto) 1.5, Lymphocytes (%) (Auto) 9L, Mean Corpuscular Hemoglobin 27.8, Mean Corpuscular Hemoglobin Concent 32.0, Mean Corpuscular Volume 87, Mean Platelet Volume 10.5H, Monocytes # (Auto) 1.2, Monocytes (%) ( Auto) 7, Neutrophils # (Auto) 13.3, Neutrophils (%) (Auto) 82H, Platelet Count 277, Potassium Level 4.7#, Prothromb Time International Ratio 3.4H, Prothrombin Time 37.1H, Red Blood Count 3.89L, Red Cell Distribution Width 15.0, Sodium Level 138, Total Bilirubin 0.6, Total Protein 6.1L, White Blood Count 16.27H 11/17/16 13:57: Hematocrit 29.10L, Hemoglobin 9.3L 11/17/16 22:04: Hemoglobin 9.0L 11/18/16 02:50: Urine Bacteria Rare, Urine Bilirubin Negative, Urine Clarity Clear, Urine Collection Type Clean catch, Urine Color Yellow, Urine Glucose (UA) Negative, Urine Ketones Negative, Urine Leukocyte Esterase Negative, Urine Nitrite Negative, Urine Protein Negative, Urine RBC 10-20H, Urine RBC (Auto) 3+H, Urine Specific M[place] 1.010, Urine Squamous Epithelial Cells 10-20, Urine Urobilinogen 0.2, Urine WBC 0-2, Urine pH 6.5, Volume Urine Centrifuged 12 ml 11/18/16 06:10: Alanine Aminotransferase (ALT/SGPT) 28L, Albumin 3.2L, Albumin/Globulin Ratio 1.280, Alkaline Phosphatase 67, Anion Gap 12.2, Aspartate Amino Transf (AST/SGOT ) 16, BUN/Creatinine Ratio 31H, Basophils # (Auto) 0.0, Basophils (%) (Auto) 0, Blood Urea Nitrogen 29H, Calcium Level 8.8, Calcium/Ionized Calcium Ratio 4.4, Calculated Osmolality 275L, Carbon Dioxide Level 23, Chloride Level 107, Creatinine 0.94, Eosinophils # (Auto) 0.1, Eosinophils (%) (Auto) 1, Estimat Glomerular Filtration Rate 69.2, Estimated GFR (Non- 57.2, Glucose Level 131#H, Hematocrit 27.20L, Hemoglobin 8.8L, Lymphocytes # (Auto) 2.2, Lymphocytes (%) (Auto) 17L, Mean Corpuscular Hemoglobin 27.5, Mean Corpuscular Hemoglobin Concent 32.4, Mean Corpuscular Volume 85, Mean Platelet Volume 10.7H, Monocytes # (Auto) 1.1, Monocytes (%) (Auto) 8, Neutrophils # ( Auto) 9.4, Neutrophils (%) (Auto) 73H, Platelet Count 247, Potassium Level 4.4, Prothromb Time International Ratio 2.6H, Prothrombin Time 29.2H, Red Blood Count 3.20L, Red Cell Distribution Width 15.4, Smear Scan , Sodium Level 138, Total Bilirubin 0.7, Total Protein 5.7L, White Blood Count 12.87H 11/18/16 13:22: Hemoglobin 8.7L 11/19/16 05:26: Alanine Aminotransferase (ALT/SGPT) 21L, Albumin 3.0L, Albumin/Globulin Ratio 1.304, Alkaline Phosphatase 66, Anion Gap 11.7, Aspartate Amino Transf (AST/SGOT ) 18, BUN/Creatinine Ratio 21H, Basophils # (Auto) 0.0, Basophils (%) (Auto) 0, Blood Urea Nitrogen 24H, Calcium Level 8.9, Calcium/Ionized Calcium Ratio 4.6, Calculated Osmolality 273L, Carbon Dioxide Level 29, Chloride Level 102, Creatinine 1.14, Eosinophils # (Auto) 0.2, Eosinophils (%) (Auto) 1, Estimat Glomerular Filtration Rate 55.4, Estimated GFR (Non- 45.8, Glucose Level 139H, Hematocrit 26.50L, Hemoglobin 8.4L, Lymphocytes # (Auto) 1.8 , Lymphocytes (%) (Auto) 17L, Mean Corpuscular Hemoglobin 27.2, Mean Corpuscular Hemoglobin Concent 31.7, Mean Corpuscular Volume 86, Mean Platelet Volume 10.7H, Monocytes # (Auto) 1.0, Monocytes (%) (Auto) 9, Neutrophils # ( Auto) 7.8, Neutrophils (%) (Auto) 72H, Platelet Count 233, Potassium Level 4.6, Prothromb Time International Ratio 2.7H, Prothrombin Time 30.4H, Red Blood Count 3.09L, Red Cell Distribution Width 15.6, Smear Scan Yes, Sodium Level 138 , Total Bilirubin 0.6, Total Protein 5.3L, White Blood Count 10.90, C-Reactive Protein 0.60, Troponin I < 0.012 11/19/16 12:05: Hematocrit 27.20L, Hemoglobin 8.7L, Troponin I < 0.012, Lactic Acid Level 1.4 11/19/16 18:00: Hematocrit 29.80L, Hemoglobin 9.7L 11/20/16 05:29: Hematocrit 27.80L, Hemoglobin 9.1L, Albumin 3.5, Anion Gap 13.3, Basophils # ( Auto) 0.0, Basophils (%) (Auto) 0, Blood Urea Nitrogen 22H, Calcium Level 9.2, Carbon Dioxide Level 30H, Chloride Level 98, Creatinine 1.12, Eosinophils # ( Auto) 0.1, Eosinophils (%) (Auto) 1, Estimat Glomerular Filtration Rate 56.5, Estimated GFR (Non- 46.7, Glucose Level 142H, Lymphocytes # ( Auto) 1.8, Lymphocytes (%) (Auto) 15L, Mean Corpuscular Hemoglobin 27.7, Mean Corpuscular Hemoglobin Concent 32.7, Mean Corpuscular Volume 85, Mean Platelet Volume 10.6H, Monocytes # (Auto) 1.1, Monocytes (%) (Auto) 9, Neutrophils # ( Auto) 8.6, Neutrophils (%) (Auto) 74H, Phosphorus Level 4.5, Platelet Count 265 , Potassium Level 4.2, Prothromb Time International Ratio 2.1H, Prothrombin Time 23.8H, Red Blood Count 3.28L, Red Cell Distribution Width 15.1, Sodium Level 137, White Blood Count 11.63H 11/21/16 05:35: Hematocrit 27.30L, Hemoglobin 8.9L, Albumin 3.3L, Anion Gap 11.4, Basophils # ( Auto) 0.0, Basophils (%) (Auto) 0, Blood Urea Nitrogen 24H, Calcium Level 9.1, Carbon Dioxide Level 29, Chloride Level 99, Creatinine 0.94, Eosinophils # (Auto ) 0.2, Eosinophils (%) (Auto) 2, Estimat Glomerular Filtration Rate 69.2, Estimated GFR (Non- 57.2, Glucose Level 136H, Lymphocytes # ( Auto) 1.9, Lymphocytes (%) (Auto) 16L, Mean Corpuscular Hemoglobin 27.8, Mean Corpuscular Hemoglobin Concent 32.6, Mean Corpuscular Volume 85, Mean Platelet Volume 10.7H, Monocytes # (Auto) 1.1, Monocytes (%) (Auto) 9, Neutrophils # ( Auto) 8.6, Neutrophils (%) (Auto) 72H, Phosphorus Level 4.0, Platelet Count 285 , Potassium Level 3.8, Prothromb Time International Ratio 1.3, Prothrombin Time 14.6H, Red Blood Count 3.20L, Red Cell Distribution Width 15.6, Sodium Level 136 , White Blood Count 11.84H 11/21/16 11:35: Urine Bilirubin Negative, Urine Clarity Clear, Urine Collection Type Catheter, Urine Color Yellow, Urine Glucose (UA) Negative, Urine Ketones Negative, Urine Leukocyte Esterase Negative, Urine Nitrite Negative, Urine Protein Negative, Urine RBC (Auto) Negative, Urine Specific Mab[place] 1.010, Urine Urobilinogen 0.2 , Urine pH 5.5 11/22/16 06:00: Albumin 3.9, Anion Gap 17.5H, Basophils # (Auto) 0.0, Basophils (%) (Auto) 0, Blood Urea Nitrogen 23H, Calcium Level 9.3, Carbon Dioxide Level 25, Chloride Level 97L, Creatinine 1.06, Eosinophils # (Auto) 0.2, Eosinophils (%) (Auto) 1, Estimat Glomerular Filtration Rate 60.2, Estimated GFR (Non- 49.8, Glucose Level 183#H, Hematocrit 30.60L, Hemoglobin 9.9L, Lymphocytes # ( Auto) 1.9, Lymphocytes (%) (Auto) 16L, Magnesium Level 1.8, Mean Corpuscular Hemoglobin 27.7, Mean Corpuscular Hemoglobin Concent 32.4, Mean Corpuscular Volume 86, Mean Platelet Volume 10.7H, Monocytes # (Auto) 1.4, Monocytes (%) ( Auto) 12H, Neutrophils # (Auto) 8.3, Neutrophils (%) (Auto) 71H, Phosphorus Level 4.9#, Platelet Count 355, Potassium Level 3.4L, Red Blood Count 3.58L, Red Cell Distribution Width 15.8H, Sodium Level 136, White Blood Count 11.82H 11/23/16 05:25: Albumin 3.4, Anion Gap 13.6, Basophils # (Auto) 0.0, Basophils (%) (Auto) 0, Blood Urea Nitrogen 31H, Calcium Level 9.2, Carbon Dioxide Level 26, Chloride Level 96L, Creatinine 1.31H, Eosinophils # (Auto) 0.2, Eosinophils (%) (Auto) 1 , Estimat Glomerular Filtration Rate 47.2, Estimated GFR (Non- 39.0, Glucose Level 159H, Hematocrit 28.00L, Hemoglobin 8.9L, Lymphocytes # ( Auto) 1.8, Lymphocytes (%) (Auto) 15L, Magnesium Level 2.0, Mean Corpuscular Hemoglobin 27.0, Mean Corpuscular Hemoglobin Concent 31.8, Mean Corpuscular Volume 85, Mean Platelet Volume 10.8H, Monocytes # (Auto) 1.2, Monocytes (%) ( Auto) 10, Neutrophils # (Auto) 8.8, Neutrophils (%) (Auto) 73H, Phosphorus Level 4.2, Platelet Count 322, Potassium Level 4.0, Red Blood Count 3.30L, Red Cell Distribution Width 15.7H, Sodium Level 131L, White Blood Count 12.13H 11/23/16 14:12: Anion Gap 16.6H, Blood Urea Nitrogen 33H, Calcium Level 9.2, Carbon Dioxide Level 24, Chloride Level 94L, Creatinine 1.54H, Estimat Glomerular Filtration Rate 39.1, Estimated GFR (Non- 32.3, Glucose Level 214#H, Potassium Level 4.3, Sodium Level 131L, BUN/Creatinine Ratio 21H 11/24/16 01:00: Urine Random Creatinine 33, Urine Random Sodium 33, Urine Random Urea 351 11/24/16 13:40: Albumin 3.8, Anion Gap 17.6H, Blood Urea Nitrogen 32H, Calcium Level 9.3, Carbon Dioxide Level 22, Chloride Level 99, Creatinine 1.08, Estimat Glomerular Filtration Rate 58.9, Estimated GFR (Non- 48.7, Glucose Level 186H, Phosphorus Level 4.0, Potassium Level 5.6#H, Sodium Level 133L 11/25/16 05:35: Albumin 3.4, Anion Gap 10.0, Blood Urea Nitrogen 25H, Calcium Level 8.9, Carbon Dioxide Level 28, Chloride Level 97L, Creatinine 1.05, Estimat Glomerular Filtration Rate 60.9, Estimated GFR (Non- 50.3, Glucose Level 129#H, Phosphorus Level 3.5, Potassium Level 4.5, Sodium Level 131L PATHOLOGY 11/21/16 ANTRUM Biopsy: 1. JEANNETTE test for H pylori: Negative. 2. Gastric mucosa (antrum biopsy): Chronic superficial gastritis. IMAGING 11/19/16 ACUTE ABD SERIES INDICATION: Abdominal pain. TECHNIQUE: Supine and upright views of the abdomen were obtained with a single view of the chest. FINDINGS: The lungs appear clear. There are surgical clips seen in the left axilla. There is anterior/inferior dislocation of the right humeral head. There is no evidence of free intraperitoneal gas or pneumatosis. The overall bowel gas pattern is unremarkable. There is diffuse spondylosis and degenerative change in the hips. IMPRESSION: No acute abdominal abnormality is identified. Note is made of inferior dislocation of the right shoulder. Discharge Disposition Discharged to [facility] for detention. Instructions * You were evaluated for gastrointestinal bleeding. You had an EGD that showed an ulcer of your duodenum. This should improve with medication. You will have follow-up in surgery clinic after discharge. * You had anemia but did not require transfusion. Your blood count should improve with iron supplementation. This was added to your home medications. * Your warfarin is being held because of gastrointestinal bleeding This can be restarted in 2 weeks. * You are being discharged to [facility] and will benefit from some further rehab in skilled care there. Activity Instructions As tolerated. Appointments Follow-up with your primary care doctor in 3-5 days. Follow-up with Dr. Acosta in surgery clinic in 2-3 weeks. [facility] staff can call to schedule this appointment to help with coordination and transportation. Discharge Diet: Carbohydrate controlled Discharge Medications New Medications: Pantoprazole Sod (Protonix Tab) 40 Mg Tab 40 MG PO DAILY #30 Ref 0 TAB Acetaminophen (Acetaminophen) 325 Mg Tablet 650 MG PO Q6H PRN PAIN #0 Ref 0 TAB Calcium Carbonate (Tums) 300 Mg Tab.chew 300 MG PO Q8H PRN DYSPEPSIA #0 Ref 0 TAB.CHEW Docusate Sodium (Docusate Sodium) 100 Mg Capsule 200 MG PO BID PRN CONSTIPATION #0 Ref 0 CAP Ferrous Sulfate (Ferrous Sulfate) 325 Mg Tablet.dr 325 MG PO BID WITH MEALS #0 Ref 0 TAB Mag Hydrox/Al Hydrox/Simeth (Mag-Al Plus -Simethicone [id number]/5ml) 30 Ml Oral.susp 30 ML PO Q6H PRN DYSPEPSIA #0 Ref 0 ML Magnesium Hydroxide (Milk of Magnesia 400mg/5ml) 400 Mg/5 Ml Oral.susp 30 ML PO DAILY PRN CONSTIPATION #0 Ref 0 ML Polyethylene Glycol 3350 (Miralax) 17 Gm Powd.pack 17 GM PO DAILY PRN CONSTIPATION #0 Ref 0 PACKET Sucralfate (Sucralfate) 1 Gm Tablet 1 GM PO ACHS #120 Ref 0 TAB Changed Medications: Furosemide (Furosemide) 40 Mg Tablet 40 MG PO DAILY Take if weight increases > 5 pounds or if increased leg edema noted. PRN EDEMA/WEIGHT GAIN #0 TAB (Changed from: HS) Warfarin Sodium (Warfarin Sodium) 3 Mg Tablet 3 MG PO DAILY@1700 Do not restart until 12/10/2016. #0 Ref 0 TAB (Changed from: Refills: ) Continued Medications: Calcium Carbonate/Vitamin D3 (Calcium + Vitamin D Tablet) 1 Each Tablet 1 EACH PO DAILY Diclofenac Sodium (Voltaren 1% Gel) 100 Gm Gel 4 GM TOP BID TUBE Digoxin (Digoxin) 125 Mcg Tablet 125 MCG PO Q48H TAB Hydrocodone Bit/Acetaminophen ([place] 10mg/325mg) 1 Ea Tab 1 TAB PO Q4H PRN PAIN #15 Ref 0 TAB (This prescription has been renewed) Insulin Glargine,Hum.rec.anlog (Lantus) 100 Unit/1 Ml Vial 18 UNIT SC once evening #0 Ref 0 VIAL (This prescription has been renewed) Insulin Lispro (Humalog) 100 Unit/1 Ml Vial 10 UNIT SC BID@08,17 #1 Ref 0 VIAL Lidocaine HCl (Lidoderm 5% Patch) 1 Ea Patch 1 EA TOP DAILY pain PATCH Lisinopril (Lisinopril) 10 Mg Tablet 5 MG PO DAILY TAB Lovastatin (Lovastatin) 40 Mg Tablet 40 MG PO DAILY Metoprolol Tartrate (Metoprolol Tartrate) 50 Mg Tablet 25 MG PO BID Ondansetron HCl (Zofran) 4 Mg Tablet 4 MG PO Q8H PRN NAUSEA/VOMITING TAB Promethazine/Codeine (Phenergan w/Codeine 6.25mg-10mg/5ml) 5 Ml Syrp 5 ML PO Q6H PRN COUGH Ref 0 BTL Sertraline HCl (Sertraline HCl) 50 Mg Tablet 50 MG PO DAILY TAB Discontinued Medications: Acetaminophen (Acetaminophen) 325 Mg Tablet 325 MG PO BID Pain/Fever #2 Ref 0 TAB Aspirin (Baby Aspirin) 81 Mg Tab.chew 81 MG PO DAILY TAB.CHEW Docusate Sodium (Docusate Sodium) 100 Mg Capsule 200 MG PO DAILY Constipation Ref 0 CAP Furosemide (Furosemide) 40 Mg Tablet 40 MG PO DAILY TAB Hydrocodone Bit/Acetaminophen ([place] 10mg/325mg) 1 Ea Tab 2 TAB PO BID Pain Ref 0 TAB Omeprazole Magnesium (Prilosec OTC) 20 Mg Tablet.dr 20 MG PO DAILY TAB Follow up New Orders: CBC WITH AUTOMATED DIFF* - 12/10/16 Discharge Diagnosis See list above. Problems: Copies to: End of Report . CRIS ALICIA MD Nov 26, 2016 10:36
--- NOTE | 2016-11-26 10:54 | NUR ---
10:30- Iv removed, gauze and tape in place. 10:45- report called to Susan at [facility] and discharge read to patient and daughter in law. 10:55- The patient escorted out of the building in wheelchair by Shani SPRING.
[2017-01-05] MEDS ORDERED: FURO40TA4 PO (17:38)
[2017-02-08] MEDS ORDERED: POTA20TA15 PO (13:49)
[2017-02-08] MEDS ORDERED: ASCO500T20 PO (13:49)
[2017-02-08] MEDS ORDERED: FERR-74 PO (13:49)
[2017-02-08] MEDS ORDERED: OMEP20CA12 PO (13:49)
[2017-02-08] MEDS ORDERED: LOVA40TA2 PO (13:49)
[2017-02-08] MEDS ORDERED: CALC600T19 PO (13:49)
[2017-02-08] MEDS ORDERED: OSEL30CA PO (13:49)
[2017-02-08] MEDS ORDERED: DOCU-243 PO (13:49)
[2017-02-08] MEDS ORDERED: MIRT15TA98 PO (13:49)
[2017-02-08] MEDS ORDERED: MTC5T PO (13:49)
[2017-02-08] MEDS ORDERED: HYDR-3702 PO (13:49)
[2017-02-08] MEDS ORDERED: METO25TA2 PO (13:49)
[2017-02-08] MEDS ORDERED: ENXP40I.4 SC (13:49)
[2017-02-08] MEDS ORDERED: LISI5TAB14 PO (13:49)
[2017-02-08] MEDS ORDERED: ACHYD1T PO (13:49)
[2017-02-08] MEDS ORDERED: INSU100V6 SC (13:49)
== END 2016-11-26 10:55 | DRG 378 ==
LOC: EDUNIT# 08:01 → ED 08:02 → UNDOADMOB 09:27 → MED/SURG 09:27 → OBSVTOIN 09:27
PROVIDERS: ADMIT Family Medicine; ATTEND Family Medicine
PROC: 0DB98ZX Excision of Duodenum, Via Natural or Artificial Opening Endoscopic, Diagnostic (ICD-10-PCS; principal; 2016-11-21)
DX: K26.4 Chronic or unspecified duodenal ulcer with hemorrhage (principal); D68.32 Hemorrhagic disorder due to extrinsic circulating anticoagulants; D62 Acute posthemorrhagic anemia; N17.9 Acute kidney failure, unspecified; I50.42 Chronic combined systolic (congestive) and diastolic (congestive) heart failure; I13.0 Hypertensive heart and chronic kidney disease with heart failure and stage 1 through stage 4 chronic kidney disease, or unspecified chronic kidney disease; Z66 Do not resuscitate; K29.30 Chronic superficial gastritis without bleeding; I48.91 Unspecified atrial fibrillation; E11.22 Type 2 diabetes mellitus with diabetic chronic kidney disease; N18.3 Chronic kidney disease, stage 3 (moderate); I34.0 Nonrheumatic mitral (valve) insufficiency; I25.10 Atherosclerotic heart disease of native coronary artery without angina pectoris; T45.515A Adverse effect of anticoagulants, initial encounter; Z79.01 Long term (current) use of anticoagulants; Z85.828 Personal history of other malignant neoplasm of skin; Z85.3 Personal history of malignant neoplasm of breast
CPT/HCPCS: 36415; 74022; 80048; 80053; 80069; 80162; 81003; 81015; 82570; 83605; 83735; 84300; 84484; 84540; 85014; 85018; 85025; 85610; 86140; 86850; 86900; 86901; 86920; 87077; 88305; 88312; 96360; 99282; 99285

== ENCOUNTER → 2016-12-03 | Outpatient (REF) | payer MEDICARE, MEDICAID ==
[~2016-12-03] MED LIST changes: +AC325T PO; +ACHYD1T PO; +ASCO500T20 PO; +CALC300T10 PO; +CALC600T19 PO; +DICL100G13 TOP; +DIGO125T PO; +DOCU100C8 PO; +ENXP40I.4 SC; +FERR-74 PO; +FERR325T5 PO; +INSU100V32 SC; +INSU100V6 SC; +LD5PT TOP; +LISI5TAB14 PO; +MAG30ORA PO; +MAGN400O7 PO; +METO25TA2 PO; +MIRT15TA98 PO; +MTC5T PO; +OMEP20CA12 PO; +OMEP20TA33 PO; +OSEL30CA PO; +PANT40TA3 PO; +POLY17PO2 PO; +POTA20TA15 PO; +PRCD5U PO; +SCR1T1 PO; +SERT50TA9 PO
[2016-12-03 18:03] LABS: BASOPHILS % (AUTO) 0 % (0-2); EOSINOPHILS # (AUTO) 0.3 10^3uL; EOSINOPHILS % (AUTO) 2 % (0-4); LYMPHOCYTES # (AUTO) 1.3 X10^3; MEAN CORPUSCULAR HEMOGLOBIN 28.1 PG (26.0-34.0); MEAN CORPUSCULAR HGB CONC 32.2 g/dL (31.0-37.0); MEAN CORPUSCULAR VOLUME 87 FL (80-100); MEAN PLATELET VOLUME 10.7 FL (6.0-9.5); MONOCYTES # (AUTO) 0.9 X10^3; MONOCYTES % (AUTO) 8 % (3-11); NEUTROPHILS # (AUTO) 8.4 X10^3; NEUTROPHILS % (AUTO) 77 % (51-67); PLATELET COUNT 340 10^3uL (150-450); WHITE BLOOD COUNT 10.81 10^3uL (4.0-11.0)
[2016-12-03 18:10] LABS: ANION GAP 14.1 MEQ/L (3-15)
== END ==
LOC: LAB 17:55
PROVIDERS: ATTEND Family Medicine
DX: D62 Acute posthemorrhagic anemia (principal); K26.0 Acute duodenal ulcer with hemorrhage; N17.9 Acute kidney failure, unspecified
CPT/HCPCS: 80048; 85025

== ENCOUNTER → 2016-12-25 | Outpatient (REF) | payer MEDICARE, MEDICAID ==
[2016-12-25 17:51] LABS: ANION GAP 14.6 MEQ/L (3-15)
== END ==
LOC: LAB 17:19
PROVIDERS: ATTEND Family Medicine
DX: E11.9 Type 2 diabetes mellitus without complications (principal); K92.2 Gastrointestinal hemorrhage, unspecified; I48.2 Chronic atrial fibrillation
CPT/HCPCS: 80048; 80162; 85014; 85018

== ENCOUNTER 2017-01-05 16:03 | Emergency (ER) | payer MEDICARE, MEDICAID ==
[~2017-01-05] VITALS: Ht 163.8 cm; Wt 87.0 kg
[2017-01-05] MEDS ORDERED: ONDANSETRON 2 MG/ML (Z0FRAN) 2 ML VIAL IV ONE (16:15)
[2017-01-05] MEDS ORDERED: ONDANSETRON 2 MG/ML (Z0FRAN) 2 ML VIAL ONE (16:17)
[2017-01-05] MEDS: SODIUM CHLORIDE FLUSH 10 ML SYR IV PRN ×4 (16:19→17:58)
--- NOTE | 2017-01-05 16:55 | NUR ---
pt off of slide board per ed staff after dr red requests removal. cl
[2017-01-05] MEDS ORDERED: HYDROmorphone 1 MG/ML (DILAUDID) SYRINGE IV ONE ×2 (17:05→17:55)
[2017-01-05 17:09] LABS: BASOPHILS % (AUTO) 0 % (0-2); EOSINOPHILS # (AUTO) 0.2 10^3uL; EOSINOPHILS % (AUTO) 1 % (0-4); LYMPHOCYTES # (AUTO) 1.7 X10^3; MEAN CORPUSCULAR HEMOGLOBIN 27.9 PG (26.0-34.0); MEAN CORPUSCULAR VOLUME 87 FL (80-100); MEAN PLATELET VOLUME 9.9 FL (6.0-9.5); MONOCYTES # (AUTO) 1.2 X10^3; MONOCYTES % (AUTO) 7 % (3-11); NEUTROPHILS # (AUTO) 13.5 X10^3; NEUTROPHILS % (AUTO) 80 % (51-67); PLATELET COUNT 327 10^3uL (150-450)
[2017-01-05 17:19] LABS: ALBUMIN 3.9 g/dL (3.4-5.0); ANION GAP 14.6 MEQ/L (3-15); CALCULATED IONIZED CALCIUM 3.9 mg/dL (3.8-4.6); TOTAL PROTEIN 7.4 g/dL (6.4-8.5)
--- NOTE | 2017-01-05 17:42 | NUR ---
DR FRAZIER PAGEForeign RE PT & ADRIEL STATES DR RUTHERFORD IS DESIGNER AND PATTERNMAKER & THEY WILL PAGE. CL
[2017-01-05 17:45] LABS: BILIRUBIN,URINE Negative (Negative); CLARITY,URINE Clear; COLOR,URINE Yellow; GLUCOSE, URINE (UA) Negative (Negative); LEUKOCYTE ESTERASE ,URINE Negative (Negative); PH,URINE 6.5 (5.0 - 8.0); UROBILINOGEN,URINE 0.2 mg/dL (0.2-1.0)
--- NOTE | 2017-01-05 17:48 | NUR ---
DR SOARES (HOSPITALIST) AT [facility] CALLED AFTER TALKING WITH TRAUMA SURGEON DR MOJICA'S NURSE (WHILE HE IS IN OR) & DR SOARES ACCEPTS PT FOR TSF. CL
--- NOTE | 2017-01-05 18:08 | NUR ---
PC ATTEMPTED TO [facility] TO REPORT PT BEING TRANSFERED TO [facility]. NO ANSWER AFTER 21 RINGS. CL
--- NOTE | 2017-01-05 18:14 | NUR ---
GENESIS EDMONDS RN CALLS REPORT TO JOSE LEAVITT ON 5TH FLOOR RE PT. CL
[2017-01-05 18:25] VITALS: BP 139/59
== END 2017-01-05 18:33 | disposition short-term general hospital (02) ==
LOC: ED 16:05
DX: S72.22XA Displaced subtrochanteric fracture of left femur, initial encounter for closed fracture (principal); W18.39XA Other fall on same level, initial encounter; Y92.007 Garden or yard of unspecified non-institutional (private) residence as the place of occurrence of the external cause; Z79.01 Long term (current) use of anticoagulants; Z79.899 Other long term (current) drug therapy
CPT/HCPCS: 36415; 51702; 73502; 80053; 81003; 85025; 85610; 96374; 96375; 96376; 99283; J1170; J2405; 72170; 99284

== ENCOUNTER → 2017-01-05 | Outpatient (CLI) | payer MEDICARE, MEDICAID | LOC: EMS 15:53 | PROVIDERS: ATTEND Family Medicine | DX: S72.92XA Unspecified fracture of left femur, initial encounter for closed fracture (principal); W18.39XA Other fall on same level, initial encounter; Y93.K1 Activity, walking an animal; Y92.128 Other place in nursing home as the place of occurrence of the external cause ==

== ENCOUNTER → 2017-02-06 | Outpatient (REF) | payer MEDICARE, MEDICAID ==
[2017-02-06 17:17] LABS: BASOPHILS % (AUTO) 1 % (0-2); EOSINOPHILS # (AUTO) 0.2 10^3uL; EOSINOPHILS % (AUTO) 2 % (0-4); LYMPHOCYTES # (AUTO) 1.3 X10^3; MEAN CORPUSCULAR HEMOGLOBIN 28.9 PG (26.0-34.0); MEAN CORPUSCULAR HGB CONC 33.6 g/dL (31.0-37.0); MEAN CORPUSCULAR VOLUME 86 FL (80-100); MEAN PLATELET VOLUME 10.7 FL (6.0-9.5); MONOCYTES # (AUTO) 1.1 X10^3; MONOCYTES % (AUTO) 12 % (3-11); NEUTROPHILS # (AUTO) 6.2 X10^3; NEUTROPHILS % (AUTO) 70 % (51-67); PLATELET COUNT 359 10^3uL (150-450); WHITE BLOOD COUNT 8.87 10^3uL (4.0-11.0)
== END ==
LOC: LAB 16:06
PROVIDERS: ATTEND Family Medicine
DX: Z51.81 Encounter for therapeutic drug level monitoring (principal); R63.4 Abnormal weight loss; I48.2 Chronic atrial fibrillation; E11.9 Type 2 diabetes mellitus without complications
CPT/HCPCS: 80162; 85025

== ENCOUNTER 2017-02-08 12:27 | Emergency (ER) | payer MEDICARE, MEDICAID ==
[~2017-02-08] VITALS: Ht 163.8 cm; Wt 84.0 kg
[2017-02-08] MEDS ORDERED: ONDANSETRON 2 MG/ML (Z0FRAN) 2 ML VIAL IV ONE (12:45)
[2017-02-08 13:50] LABS: BASOPHILS % (AUTO) 0 % (0-2); EOSINOPHILS # (AUTO) 0.1 10^3uL; EOSINOPHILS % (AUTO) 1 % (0-4); LYMPHOCYTES # (AUTO) 1.4 X10^3; MEAN CORPUSCULAR HEMOGLOBIN 29.2 PG (26.0-34.0); MEAN CORPUSCULAR HGB CONC 32.9 g/dL (31.0-37.0); MEAN CORPUSCULAR VOLUME 89 FL (80-100); MEAN PLATELET VOLUME 10.4 FL (6.0-9.5); MONOCYTES # (AUTO) 1.2 X10^3; MONOCYTES % (AUTO) 14 % (3-11); NEUTROPHILS # (AUTO) 5.9 X10^3; NEUTROPHILS % (AUTO) 68 % (51-67); PLATELET COUNT 297 10^3uL (150-450); WHITE BLOOD COUNT 8.65 10^3uL (4.0-11.0)
[2017-02-08 14:08] LABS: ALBUMIN 3.3 g/dL (3.4-5.0); ANION GAP 15.8 MEQ/L (3-15); CALCULATED IONIZED CALCIUM 4.3 mg/dL (3.8-4.6); TOTAL PROTEIN 6.4 g/dL (6.4-8.5)
[2017-02-08 15:13] VITALS: BP 103/46
--- NOTE | 2017-02-08 15:14 | NUR ---
at 1430 ordered fluids to stop, approx 300 cc in of ns
== END 2017-02-08 15:05 | disposition home or self-care (01) ==
LOC: EDUNIT# 12:27 → ED 12:28
DX: R11.2 Nausea with vomiting, unspecified (principal); E87.1 Hypo-osmolality and hyponatremia
CPT/HCPCS: 36415; 74022; 80053; 83690; 85025; 86140; 99283; J2405; J7030; 96361; 96374

== ENCOUNTER 2017-03-06 15:52 | Outpatient (RCR) | payer MEDICARE, MEDICAID ==
--- NOTE | 2017-03-07 14:51 | PT/OT/ST INITIAL EVALUATION ---
Department of Health and Human Services Form Approved [facility] Care Financing Administration OMB No. [id number] PLAN OF CARE/ASSESSMENT FOR OUTPATIENT REHABILITATION (Complete for Initial Claims Only) 1. PATIENT'S NAME Renata Powell 2. ACC # [id number] 3. [facility] [id number] 4. PROVIDER NO. [id number] 5. TYPE: SPT 6. PRIOR HOSPITALIZATION NA 7. PRIMARY DX Oropharyngeal dysphagia 8. SECONDARY DX NA 9. ONSET DATE Approximately 1-1/2 to 2 years ago 10. REFERRAL DATE February 25, 2017 11. SOC. DATE March 06, 2017 12. TIME OF EVAL 15:[address] Miguel Bess 13. CHARGES/UNITS NA 14. G CODES Currently [id number] 20 to 39% impaired Goal [id number] 20 to 39% impaired On discharge [id number] 20 to 39% impaired. 15. PRIOR LEVEL OF FUNCTION; PERTINENT HISTORY (Prior therapy results, reason for referral.) S: Prior to therapy the patient consented to today's evaluation and treatment. The patient is an 81-year-old female referred to speech therapy by Dr. Bess to address dysphagia. Personal health rating: The patient rates her overall and general health as fair. Mechanism of injury: She has no mechanism of injury. Primary Complaint: Food gets stuck in her pharynx sometimes. She says she does not have this problem all the time, just once in a while. She has not had this problem before. The patient resides at [facility]. Therapy History: She has never received therapy. Aggravating factors: She has no aggravating factors. Diagnostic testing: No diagnostic testing. Past medical history: Includes anxiety disorder, left leg pain, dysphagia, fracture of left femur, major depressive disorder, cough, edema, weakness, pain in right shoulder, GERD, osteoporosis, constipation, diabetes, hypertension, hyperlipidemia, nausea, diarrhea, insomnia, A-fib, chronic kidney disease, congestive heart failure, heart disease, carpal tunnel and abnormal posture. Past surgical history: The patient was a poor historian for past surgical history. Current medications: Listed in her chart. 16. INITIAL ASSESSMENT/SAFETY PRECAUTIONS/MEDICAL COMPLICATIONS (Level of function at start of care. Be specific, use objective measures, list problems.) O: APPEARANCE, OBSERVATION AND GAIT: Upon assessment the patient was given an oral neck exam. She had upper dentures, but not lower dentures. She had no labial or lingual weakness and a proper velar and laryngeal elevation. She was given pudding-thick and honey-thick liquids and she demonstrated efficient oral motility on these. She was able to clear her oral cavity and she had proper bolus control of the posterior tongue. She did not clear her vallecula initially and she needed cues to swallow again to clear it out of her vallecula. She had mild piriform sinus residue that was cleared with multiple swallows. She had no laryngeal penetration or aspiration. She was then given nectar-thick liquids and demonstrated penetration on this, but no aspiration. She was given thin liquids and demonstrated worse penetration, but no aspiration. She did have a reflexive cough on the thin liquids. She was given ground meat and crackers and demonstrated difficulty masticating in a slow A to B transfer. She was able to clear her oral cavity, but it was delayed. She had a pharyngeal swallow trigger without delay and needed cues to swallow twice to clear her vallecula. She had mild piriforms sinus residue, which was cleared with multiple swallows. She had no laryngeal penetration or aspiration. The patient was then given a 10-mm barium pill and was able to swallow it. She states that her pills have to be cut in half for her to swallow. The patient presents with a mild oropharyngeal dysphagia. Recommend nectar-thick liquids with mechanical soft diet with ground meat and gravy. Recommend speech therapy services for oral pharyngeal strengthening and compensatory strategies. TODAY'S TREATMENT: No treatment provided today. This is an evaluation only secondary to order for modified barium swallow study only. However, do [facility] for strengthening and compensatory strategies while eating and drinking. 17. INITIAL POC: (Specify procedures, modalities, short and vermin exterminator goals) A: INFORMED CONSENT: This was discussed with the patient and she agreed to today's established plan of care of evaluation only. P: Plan to discharge patient at this time. 18. FREQUENCY 19. DURATION 20. FUNCTIONAL LEVEL (End of claim period) 21. PHYSICIAN SIGNATURE ? ON FILE OR ENTER HERE: 22. DATE: I certify the need for these services furnished under this plan of care and if for partial hospitalization. 23. CERTIFICATION FROM THROUGH FORM [id number]
== END 2017-03-06 18:00 | disposition home or self-care (01) ==
LOC: ST 15:52
PROVIDERS: ATTEND Family Medicine
DX: R13.12 Dysphagia, oropharyngeal phase (principal)
CPT/HCPCS: 92611; G8996; G8997; G8998

== ENCOUNTER → 2017-03-06 | Outpatient (CLI) | payer MEDICARE, MEDICAID ==
--- NOTE | 2017-03-06 16:13 | Diagnostic Imaging Report ---
INDICATION: Dysphagia. COMPARISON: None. FINDINGS: The court of appeals judge view of the chest demonstrates normal cardiac silhouette and pulmonary vasculature. There is calcified aortic atherosclerosis. The lungs are clear and show no focal consolidations, pleural effusions, or pneumothoraces. A swallow function study was performed in concert with Speech Pathology. A Speech Pathologist was present during the exam. The exam was performed in the upright and lateral position. The patient was given thin barium, thickened barium, and barium coated solids. With water and nectar thin barium, there was flash penetration but no aspiration. With pudding thick and barium coated solids, there was no penetration or aspiration. The patient was also given a barium tablet pill but was unable to successfully swallow the pill. IMPRESSION: Swallow function study as described above. Dictated by: Dictated on workstation # [id number]
== END ==
LOC: RAD 13:14
PROVIDERS: ATTEND Family Medicine
DX: R13.12 Dysphagia, oropharyngeal phase (principal)
CPT/HCPCS: 74230

== ENCOUNTER → 2017-03-19 | Outpatient (REF) | payer MEDICARE, MEDICAID ==
[~2017-03-19] MED LIST changes: +DRNB2.5C PO; +LORA0.5T PO; +MAGN296S PO; +OLAN5TAB3 PO; +POLY17PO6 PO
[2017-03-19 20:05] LABS: ANION GAP 14.6 MEQ/L (3-15)
== END ==
LOC: LAB 17:00
PROVIDERS: ATTEND Family Medicine
DX: N18.1 Chronic kidney disease, stage 1 (principal); E11.9 Type 2 diabetes mellitus without complications; F02.80 Dementia in other diseases classified elsewhere, unspecified severity, without behavioral disturbance, psychotic disturbance, mood disturbance, and anxiety; I48.2 Chronic atrial fibrillation
CPT/HCPCS: 80048; 80162

== ENCOUNTER 2017-03-21 17:09 | Emergency (ER) | payer MEDICARE, MEDICAID ==
[~2017-03-21] VITALS: Ht 157.5 cm; Wt 81.8 kg
[~2017-03-21 17:09] MED LIST changes: -DRNB2.5C PO; -LORA0.5T PO; -MAGN296S PO; -OLAN5TAB3 PO; -POLY17PO6 PO
[2017-03-21] MEDS ORDERED: ONDANSETRON 2 MG/ML (Z0FRAN) 2 ML VIAL IV ONE (17:45)
--- NOTE | 2017-03-21 17:45 | NUR ---
DAUGHTER REPORTS PT IS "DNR" AND WILL HAVE HER SPOUSE BRING UP PAPERWORK.
--- NOTE | 2017-03-21 18:00 | NUR ---
DAUGHTERS IN ROOM WITH PATIENT VERBALIZE NOT WANTING ANY ADDITIONAL INVASIVE PROCEDURES DONE UNTIL THEY HAVE A FAMILY MEETING AND THEN TALK WITH DOCTOR.
[2017-03-21] MEDS ORDERED: MAGN296S PO (18:25)
[2017-03-21] MEDS ORDERED: LORA0.5T PO (18:25)
[2017-03-21] MEDS ORDERED: ACHYD1T PO (18:25)
[2017-03-21] MEDS ORDERED: DRNB2.5C PO (18:25)
[2017-03-21] MEDS ORDERED: POLY17PO6 PO (18:25)
[2017-03-21] MEDS ORDERED: OLAN5TAB3 PO (18:25)
--- NOTE | 2017-03-21 18:28 | NUR ---
MED REC COMPLETE--current med list obtained from list provided by [facility].
[2017-03-21] MEDS ORDERED: LORazepam 2 MG/ML (ATIVAN) 1 ML VIAL IV ONE (19:25)
[2017-03-21] MEDS ORDERED: SCOPOLAMINE 1.5 MG (TRANSDERM-SCOP) PATCH TD ONE (19:30)
[2017-03-21] MEDS: SODIUM CHLORIDE FLUSH 3 ML SYR IV PRN ×2 (19:55→19:59)
[2017-03-21] MEDS ORDERED: SODIUM CHLORIDE FLUSH 10 ML SYR IV PRN (19:55)
--- NOTE | 2017-03-21 20:34 | NUR ---
REPORT HAS BEEN CALLED TO NURSE AT [facility], PHYSICIAN ORDERS FAXED TO SAME NURSE PER HER REQUEST, EMS HAS BEEN NOTIFIED THAT PATIENT IS TO BE TRANSPORTED BACK TO [facility] PER EMS. FAMILY UPDATED ON PROGRESS IN GETTING PT BACK TO [facility].
--- NOTE | 2017-03-21 20:49 | NUR ---
FAMILY DID NOT WANT ANY FURTHER INVASIVE PROCEDURES ( URINARY CATH, BLOOD DRAW) AND DISCUSSED WISHES WITH PHYSICIAN.
[2017-03-22 00:02] VITALS: BP 104/49
== END 2017-03-21 20:49 | disposition home or self-care (01) ==
LOC: ED 17:10
DX: Z51.5 Encounter for palliative care (principal); R41.82 Altered mental status, unspecified; R29.818 Other symptoms and signs involving the nervous system; Z66 Do not resuscitate
CPT/HCPCS: 96374; 96375; 99285; A9270; J2060; J2405; 93005; 99283

== ENCOUNTER → 2017-03-21 | Outpatient (CLI) | payer MEDICARE, MEDICAID | LOC: EMS 16:51 | PROVIDERS: ATTEND Emergency Medicine | DX: R41.82 Altered mental status, unspecified (principal) ==